=== PATIENT | male | born 1965 ===

== ENCOUNTER 2017-01-10 12:35 | Emergency (ER) | payer MEDICAID ==
[2017-01-10 12:40] VITALS: BMI 22.1
[2017-01-10 12:44] VITALS: BP 148/86; PULSE 90; TEMP 97.7; O2SAT 100
[2017-01-10 13:58] VITALS: RESP 16
--- NOTE | 2017-01-12 08:41 | CARD ---
APPROVED REPORT EKG Measurement Heart [id number] <Conclusion> Sinus tachycardia Otherwise normal ECG
== END 2017-01-10 13:30 | disposition left against medical advice (07) ==
LOC: C.ER 12:35
DX: R07.9 Chest pain, unspecified (principal); Z02.9 Encounter for administrative examinations, unspecified
CPT/HCPCS: 93005; LWBS0

== ENCOUNTER 2017-01-21 20:35 | Emergency (ER) | payer MEDICAID ==
[2017-01-21 20:36] VITALS: BMI 22.1
[2017-01-21 20:53] VITALS: BP 154/100; PULSE 100; RESP 18; TEMP 97.3; O2SAT 98
[2017-01-21 22:18] LABS: ALCOHOL SERUM < 10 mg/dl (0-10)
[2017-01-21 22:21] LABS: MAGNESIUM 1.7 mg/dL (1.6-2.3)
[2017-01-21] MEDS ORDERED: Iodixanol 320 mg/ml 150 ml Bottle IV ONE (23:05)
--- NOTE | 2017-01-21 23:41 | C.PDOC ---
History Of Present Illness Pt was seen at [place] ED twice today for the same complaint where he had normal labs, EKGs and CXR. He signed out AMA from there both times. Time Seen by Provider: 01/21/17 20:52 Chief Complaint (Nursing): Palpitations History Per: Patient Onset/Duration Of Symptoms: Days (1), Intermittent Episodes Current Symptoms Are (Timing): Still Present Associated Symptoms: Chest Pain Quality Of Symptoms: Rapid Heart Rate Severity: Moderate Additional History Per: Prior Records Past Medical History Reviewed: Historical Data, Nursing Documentation, Vital Signs Vital Signs: Last Vital Signs Temp 97.3 F L 01/21/17 20:41 Pulse 100 H 01/21/17 20:41 Resp 18 01/21/17 20:41 BP 154/100 H 01/21/17 20:41 Pulse Ox 98 01/21/17 23:44 - Medical History PMH: Asthma - [facility] Procedures PERIPHERAL NERVE SUTURE (11/03/97) SKIN SUTURE NEC (11/03/97) SUTUR FLEX TEND HAND NEC (11/03/97) Family History: States: Unknown Family Hx - Social History Hx Tobacco Use: No (unknown) Hx Alcohol Use: Yes (DENIED ON 01/21/2018) Hx Substance Use: Yes (IVDA HEROIN) - Immunization History Hx Tetanus Toxoid Vaccination: No Hx Influenza Vaccination: No Hx Pneumococcal Vaccination: No Review Of Systems Except As Marked, All Systems Reviewed And Found Negative. Constitutional: Negative for: Fever, Weakness Cardiovascular: Positive for: Chest Pain, Palpitations Respiratory: Negative for: Hemoptysis Gastrointestinal: Negative for: Vomiting, Abdominal Pain Musculoskeletal: Negative for: Neck Pain, Back Pain, Leg Pain Neurological: Negative for: Weakness, Numbness, Seizures Physical Exam - Physical Exam Appears: Non-toxic, No Acute Distress Skin: Normal Color, Warm, Dry Head: Atraumatic, Normacephalic Eye(s): bilateral: Normal Inspection, PERRL, EOMI Neck: Normal ROM, Supple Cardiovascular: Rhythm Regular Respiratory: Normal Breath Sounds, No Accessory Muscle Use Gastrointestinal/Abdominal: Soft, No Tenderness Back: No CVA Tenderness Extremity: Normal ROM, No Pedal Edema, No Calf Tenderness Neurological/Psych: Oriented x3, Normal Motor, Normal Sensation ED Course And Treatment ECG: Interpreted By Me, Viewed By Me ECG Rhythm: Sinus Rhythm ECG Interpretation: No Acute Changes Rate From EC O2 Sat by Pulse Oximetry: 98 Pulse Ox Interpretation: Normal Progress Note: I ordered a CTA of chest on patient, but the patient did not tolerate the IV line in his arm and wants to leave AMA again right now. We offered to place an IV in the other arm, but pt refused. He insists on leaving AMA even after I explained to him that he may be suffering from a dangerous and life threateting condition such as a blood clot in his lungs. Disposition Counseled Patient/Family Regarding: Studies Performed, Diagnosis, Need For Followup - Disposition Referrals: [facility] at [facility] [Outside] Disposition: AGAINST MEDICAL ADVICE Disposition Time: 23:49 Condition: UNKNOWN Additional Instructions: Follow up with your doctor or in the clinic as soon as possible. Return to the ER if you change your mind, develop worsening of symptoms or if you have any other concerns. Instructions: Against Medical Advice (ED), Chest Pain (ED) Forms: [facility] (Algerian) - Clinical Impression Clinical Impression: Palpitations, Chest pain, Left against medical advice
== END 2017-01-21 23:54 | disposition left against medical advice (07) ==
LOC: C.ER 20:35
DX: R00.2 Palpitations (principal); R07.9 Chest pain, unspecified
CPT/HCPCS: 80320; 83735; 84484; 99283; Q9967

== ENCOUNTER 2017-01-22 13:13 | Emergency (ER) | payer SELFPAY ==
[2017-01-22 13:13] VITALS: BMI 22.1
[2017-01-22] MEDS ORDERED: Aspirin 325 mg EC Tablets PO STA (14:31)
[2017-01-22] MEDS ORDERED: Aspirin 325 mg EC Tablets PO ONE (14:37)
[2017-01-22 15:26] LABS: BASO # 0.1 K/uL (0.0-0.2); BASO % 0.8 % (0.0-2.0); EOS # 0.3 K/uL (0.0-0.7); EOS % 2.2 % (0.0-4.0); HEMATOCRIT 45.2 % (35.0-51.0); LYMPH # 2.6 K/uL (1.0-4.3); LYMPH % 20.1 % (20.0-40.0); MEAN CORPUSCULAR HEMOGLOBIN 29.3 pg (27.0-31.0); MEAN CORPUSCULAR HGB CONC 34.1 g/dL (33.0-37.0); MEAN PLATELET VOLUME 7.4 fL (7.2-11.7); MONO # 0.7 K/uL (0.0-0.8); MONO % 5.7 % (0.0-10.0); NRBC % 0.1 % (0.0-2.0); RED CELL DISTRIBUTION WIDTH 13.5 % (11.5-14.5)
[2017-01-22 15:39] LABS: MEAN CELL VOLUME 85.8 fL (80.0-94.0); WHITE BLOOD COUNT 12.8 K/uL (4.8-10.8)
--- NOTE | 2017-01-22 15:57 | RAD ---
PROCEDURE: CHEST RADIOGRAPH, 1 VIEW HISTORY: chest pain COMPARISON: None available. FINDINGS: LUNGS: Minor biapical pleural thickening. No acute consolidation. PLEURA: No pneumothorax or pleural fluid seen. CARDIOVASCULAR: Normal. OSSEOUS STRUCTURES: No significant abnormalities. VISUALIZED UPPER ABDOMEN: Normal. OTHER FINDINGS: None. IMPRESSION: No acute consolidation. Geovani Minor biapical pleural thickening
[2017-01-22 16:00] LABS: BILIRUBIN,TOTAL 0.7 mg/dL (0.2-1.3); CALCIUM 9.1 mg/dl (8.6-10.4); GFR AFRICAN-AMERICAN > 60; GLUCOSE,RANDOM 82 mg/dL (75-110); TOTAL PROTEIN 8.5 g/dL (6.3-8.3)
--- NOTE | 2017-01-22 16:06 | C.PDOC ---
History Of Present Illness 51-year-old male, presents to the emergency department with complaints of chest pain. four day duration of non-radiating left sided chest pain. Patient has been seen in hospital multiple times this past week and has signed out AMA each time. Denies shortness of breath, back pain, dizziness, or any other associated symptoms. No other complaints at this time., Time Seen by Provider: 01/22/17 14:18 Chief Complaint (Nursing): Chest Pain History Per: Patient History/Exam Limitations: no limitations Onset/Duration Of Symptoms: Days Current Symptoms Are (Timing): Still Present Severity: Moderate Past Medical History Reviewed: Historical Data, Nursing Documentation, Vital Signs Vital Signs: Last Vital Signs Temp 98.1 F 01/22/17 19:18 Pulse 110 H 01/22/17 19:18 Resp 99 H 01/22/17 19:18 BP 156/73 H 01/22/17 19:18 Pulse Ox 99 01/22/17 19:18 - Medical History PMH: Asthma - [facility] Procedures PERIPHERAL NERVE SUTURE (11/03/97) SKIN SUTURE NEC (11/03/97) SUTUR FLEX TEND HAND NEC (11/03/97) Family History: States: No Known Family Hx - Social History Hx Tobacco Use: No (unknown) Hx Alcohol Use: Yes Hx Substance Use: Yes (heroin - shoots) - Immunization History Hx Tetanus Toxoid Vaccination: No Hx Influenza Vaccination: No Hx Pneumococcal Vaccination: No Review Of Systems Except As Marked, All Systems Reviewed And Found Negative. Constitutional: Negative for: Fever, Chills Cardiovascular: Positive for: Chest Pain. Negative for: Palpitations Respiratory: Negative for: Shortness of Breath Gastrointestinal: Negative for: Nausea, Vomiting Musculoskeletal: Negative for: Back Pain Physical Exam - Physical Exam Appears: Non-toxic, No Acute Distress Skin: Warm, Dry, No Rash Head: Atraumatic, Normacephalic Eye(s): bilateral: Normal Inspection, PERRL, EOMI Nose: Normal Oral Mucosa: Moist Lips: Normal Appearing Throat: No Erythema, No Exudate Neck: Normal ROM, No Midline Cervical Tenderness, No Paracervical Tenderness, Supple Chest: Symmetrical, No Tenderness Cardiovascular: Rhythm Regular, No Friction Rub, No Murmur Respiratory: Normal Breath Sounds, No Accessory Muscle Use, No Rales, No Rhonchi , No Wheezing Gastrointestinal/Abdominal: Soft, No Tenderness Back: Normal Inspection, No CVA Tenderness Extremity: Normal ROM, No Swelling Neurological/Psych: Oriented x3, Normal Speech, Normal Motor Gait: Steady ED Course And Treatment - Laboratory Results Result Diagrams: 01/22/17 14:31 01/22/17 15:15 O2 Sat by Pulse Oximetry: 100 (on RA) Pulse Ox Interpretation: Normal - CT Scan/US CT - Angio Chest Other Rad Studies (CT/US): Read By Radiologist, Radiology Report Reviewed CT/US Interpretation: EXAM: CT Angiography Chest With Intravenous Contrast. EXAM DATE/TIME: Exam ordered 01/22/2017 2:45 PM. CLINICAL HISTORY: 51 years old, male; Pain; Chest pain; Type not specified. TECHNIQUE: Axial computed tomographic angiography images of the chest with intravenous contrast using. pulmonary embolism protocol. All CT scans at this facility use one or more dose reduction. techniques, viz.: automated exposure control; ma/kV adjustment per patient size (including targeted. exams where dose is matched to indication; i.e. head); or iterative reconstruction technique. Coronal and sagittal reformatted images were created and reviewed. CONTRAST: 100 mL of [id number] administered intravenously. COMPARISON: No relevant prior studies available. FINDINGS: Pulmonary arteries: Mild motion artifact with no definite pulmonary embolism. Aorta: No thoracic aortic aneurysm. Lungs: Mild emphysematous changes in both lungs. No mass. Pleural space: Unremarkable. No significant effusion. No pneumothorax. Heart: Unremarkable. No cardiomegaly. No significant pericardial effusion. No evidence of RV. dysfunction. Mediastinum : Small hiatal hernia. Bones/joints: Hypertrophic change in the spine is mild. Old left rib fracture. No dislocation. Soft tissues: Unremarkable. Liver: Multiple low density structures are noted in the liver consistent with cysts. In addition there. are multiple low density structures in the kidneys as well as several hyperdense left structure renal. structures. Correlate for polycystic kidney and liver disease. IMPRESSION: 1. Mild motion artifact with no definite pulmonary embolism. 2. Multiple low density structures are noted in the liver consistent with cysts. In addition there are. multiple low density structures in the kidneys as well as several hyperdense left structure renal. structures. Correlate for polycystic kidney and liver disease. Lymph nodes: Unremarkable. No enlarged lymph nodes. Medical Decision Making Medical Decision Making: [facility] records reviewed, the patient was seen in the ED for similar visits of chest pain and has eloped over the past week. PLan: * CT Chest * EKG * Chest X-Ray * Labs * Aspirin * Reassess and Disposition CT results were discussed with the patient. On re-exam, the patient reports improvement of symptoms. Lungs are CTA, heart is RRR, abdomen is soft, non-tender, and patient is tolerating PO well.. Ambulatory in the ED with steady gait. Follow up with the medical doctor within 1-2 days. Return if worsened. Disposition - Disposition Referrals: [facility] at [facility] [Outside] Teresa Holliday MD [Staff Provider] - Disposition: HOME/ ROUTINE Disposition Time: 19:00 Condition: STABLE Additional Instructions: Follow up with the medical doctor within 1-2 days. Return if worsened. Prescriptions: Ibuprofen [Motrin Tab] 800 mg PO TID #20 tab Instructions: Costochondritis (ED), Kidney Cyst (ED) Forms: [employer] (Djiboutian) - Clinical Impression Clinical Impression: Chest pain, Polycystic kidney disease - Scribe Statement The provider has reviewed the documentation as recorded by the Scribe (Monisha Su) All medical record entries made by the Scribe were at my direction and personally dictated by me. I have reviewed the chart and agree that the record accurately reflects my personal performance of the history, physical exam, medical decision making, and the department course for this patient. I have also personally directed, reviewed, and agree with the discharge instructions and disposition.
[2017-01-22 16:12] LABS: ALB/GLOB RATIO 0.9 (1.0-2.1); ALKALINE PHOSPHATASE 110 U/L (38-126); ALT/SGPT 21 U/L (21-72); AST/SGOT 57 U/L (17-59); BLOOD UREA NITROGEN 14 mg/dL (9-20); CARBON DIOXIDE 25 mmol/L (22-30); CHLORIDE 102 mmol/L (98-107); POTASSIUM 4.1 mmol/L (3.6-5.2); SODIUM 134 mmol/L (132-148)
[2017-01-22 16:18] LABS: INR 1.1
[2017-01-22] MEDS ORDERED: Iodixanol 320 MG/ML 100 ML BOTTLE IV ONE (17:02)
--- NOTE | 2017-01-22 18:56 | CT ---
PROCEDURE: CTA chest dated 01/22/2017. HISTORY: Chest pain. COMPARISON: None available. TECHNIQUE: Axial computed tomography images were obtained of the chest in the pulmonary arterial phase of enhancement. Coronal and sagittal reformatted images were created and reviewed. Intravenous contrast dose: 100 cc Visipaque 320 contrast Radiation dose: Total exam DLP = 407.76 mGy-cm. This CT exam was performed using one or more of the following dose reduction techniques: Automated exposure control, adjustment of the mA and/or kV according to patient size, and/or use of iterative reconstruction technique. FINDINGS: PULMONARY ARTERIES: The visualized portions of the pulmonary trunk, right and left main, lobar, segmental and proximal subsegmental branches of the pulmonary arteries are well opacified with no filling defects seen to suggest acute central pulmonary embolus. The main pulmonary trunk measures approximately 2.67 cm. AORTA: No acute findings. No thoracic aortic aneurysm. Ascending thoracic aorta measures approximately 3.3 cm and descending thoracic aorta measures approximately 2.77 cm. LUNGS: No focal consolidation. Questionable tiny paraseptal emphysematous changes of right lung apex. Close. . Mild biapical pleural thickening PLEURAL SPACES: Unremarkable. No effusion or pneumothorax. . HEART: Heart size within range of normal. No significant pericardial effusion. . LYMPH NODES: No lymphadenopathy. BONES, CHEST WALL: Unremarkable. No fracture or destructive lesion OTHER FINDINGS: Multiple (too numerous to count) varying sized of relatively small rounded low-attenuation foci scattered throughout the hepatic parenchyma some of the largest of which likely represent cysts with the other smaller lesions are too small to characterize. Note that the possibility of other infiltrative lesions cannot be completely excluded based on this exam. Additionally, there are multiple varying sized rounded low-attenuation lesions, scattered throughout the right kidney on felt to represent renal cysts. The largest lesion which is exophytic arising from the anterolateral aspect 5.2 cm. . Multiple varying sized lesions scattered throughout the left kidney which exhibit low and high attenuation Hounsfield unit values. These low-attenuation lesions likely represent cysts. The low high attenuation lesions may represent hyperdense cysts however any solid components cannot be completely excluded on. . . History history of hypertension in this patient? And if so, consider polycystic kidney disease. . Follow-up of pre and post-contrast MRI of the kidneys and liver could be performed to exclude any solid tumor IMPRESSION: No evidence of central pulmonary embolus. . Minor passive atelectasis both posterior lower lung gatica. There are multiple low-attenuation foci scattered throughout the hepatic parenchyma too numerous to count. . Most of the larger lesions are likely represent hepatic cysts however some of the smaller lesions are too small to characterize. Possibility of any solid lesion not excluded. There are also cystic changes throughout the right kidney . Multiple cystic and high attenuation lesions scattered throughout the left kidney. High attenuation lesions may represent hyperdense cysts however any solid mass not excluded. . Rule out polycystic kidney disease. Consider followup pre and post-contrast MRI of the liver and kidneys to exclude any solid tumor. Note that the findings were discussed with emergency room LAUREN Adames at approximately 6:51 p.m. with written down and read back verification.
[2017-01-22 19:19] VITALS: BP 156/73; PULSE 110; RESP 99; TEMP 98.1
--- NOTE | 2017-01-23 17:46 | CARD ---
APPROVED REPORT EKG Measurement Heart [id number] [place] 172P60 [id number] <Conclusion> Normal sinus rhythm Possible Left atrial enlargement Septal infarct, age undetermined Abnormal ECG
[2017-01-24 23:11] VITALS: O2SAT 100
== END 2017-01-22 19:19 | disposition home or self-care (01) ==
LOC: C.ER 13:13
DX: R07.9 Chest pain, unspecified (principal); Q61.3 Polycystic kidney, unspecified
CPT/HCPCS: 71010; 71275; 80053; 84484; 85025; 85378; 85610; 85730; 93005; 99284; Q9967

== ENCOUNTER 2017-01-30 19:44 | Emergency (ER) | payer SELFPAY ==
[2017-01-30 19:44] VITALS: BMI 22.1
[2017-01-30] MEDS ORDERED: Aspirin 325 mg EC Tablets PO STA (20:07)
--- NOTE | 2017-01-30 20:07 | C.PDOC ---
History Of Present Illness Patient presents to the ER with a complaint of chest pain and palpitations, admits to heroin use today. Patient has had many several hospitalizations in the past where he signs out AMA and has negative work ups. Patient reports he has reproducible left chest wall discomfort where he states he had a muscle tear years ago. Denies fever, chills, nausea, or vomiting. Time Seen by Provider: 01/30/17 20:06 Chief Complaint (Nursing): Chest Pain History Per: Patient History/Exam Limitations: no limitations Onset/Duration Of Symptoms: Hrs Current Symptoms Are (Timing): Still Present Severity: Mild Pain Scale Rating Of: 4 Associated Symptoms: denies: Nausea, Dyspnea, Diaphoresis, Syncope Modifying Factors: None Exacerbating Factors: None Alleviating Factors: None Recent travel outside of the [place]: No Past Medical History Reviewed: Historical Data, Nursing Documentation, Vital Signs Vital Signs: Last Vital Signs Temp 98.5 F 01/30/17 20:47 Pulse 76 01/30/17 20:47 Resp 15 01/30/17 20:47 BP 139/79 01/30/17 20:47 Pulse Ox 98 01/30/17 21:01 - Medical History PMH: Asthma - [facility] Procedures PERIPHERAL NERVE SUTURE (11/03/97) SKIN SUTURE NEC (11/03/97) SUTUR FLEX TEND HAND NEC (11/03/97) Family History: States: No Known Family Hx - Social History Hx Tobacco Use: No (unknown) Hx Alcohol Use: Yes Hx Substance Use: Yes (heroin - shoots) - Immunization History Hx Tetanus Toxoid Vaccination: No Hx Influenza Vaccination: No Hx Pneumococcal Vaccination: No Review Of Systems Constitutional: Negative for: Fever, Chills Cardiovascular: Positive for: Chest Pain, Palpitations Gastrointestinal: Negative for: Nausea, Vomiting Genitourinary: Negative for: Dysuria Musculoskeletal: Positive for: Other (Reproducible chest wall pain) Skin: Negative for: Rash Neurological: Negative for: Weakness Psych: Negative for: Anxiety Physical Exam - Physical Exam Appears: Non-toxic, No Acute Distress Skin: Warm, Dry Head: Normacephalic Eye(s): bilateral: Normal Inspection Oral Mucosa: Moist Neck: Supple Chest: Symmetrical, Tenderness (Reproducible to left chest wall at mid clavicular line intercostal space 4) Cardiovascular: Rhythm Regular Respiratory: No Rales, No Rhonchi, No Wheezing Gastrointestinal/Abdominal: Soft, No Tenderness Back: Normal Inspection Extremity: Normal ROM Extremity: Bilateral: Atraumatic Pulses: Left Dorsalis Pedis: Normal, Right Dorsalis Pedis: Normal Neurological/Psych: Oriented x3, Normal Speech, Normal Cognition Gait: Steady ED Course And Treatment - Laboratory Results Result Diagrams: 01/30/17 20:17 12 20:17 ECG: Interpreted By Me, Viewed By Me ECG Rhythm: Sinus Rhythm, Nonspecific Changes O2 Sat by Pulse Oximetry: 98 Pulse Ox Interpretation: Normal Progress Note: EKG, blood work, CXR, and urinalysis ordered. Aspirin administered. Reevaluation Time: 22:16 Reassessment Condition: Improved Medical Decision Making Medical Decision Making: I considered the following diagnoses: acute coronary syndrome, pulmonary embolism, lower respiratory infection, aortic dissection/aneurysm, pneumothorax , pericarditis, esophagitis/GERD, zoster and esophageal rupture but found them to be unlikely based on the history, physical exam, and diagnostics. My conclusions regarding the unlikely diagnoses were based on: the absence of significant EKG abnormalities, the lack of suggestive x-ray findings, the absence of significant abnormalities on cardiac monitoring, the absence of asymmetric pulses. Pt feels fine and wants to go home Upon provider reevaluation patient is feeling better, is medically stable, and requires no further treatment in the ED at this time. Patient will be discharged home with Rx for naproxen . Counseling was provided and all questions were answered regarding diagnosis and need for follow up with the referred clinic. There is agreement to discharge plan. Return if symptoms persist or worsen. Disposition Counseled Patient/Family Regarding: Studies Performed, Diagnosis, Need For Followup, Rx Given - Disposition Referrals: [facility] [Outside] [facility] [Outside] Disposition: HOME/ ROUTINE Disposition Time: 20:07 Condition: FAIR Additional Instructions: Please return if symptoms recur Prescriptions: Naproxen [Naprosyn] 1 tab PO BID PRN #25 tab PRN Reason: Pain Instructions: Costochondritis (ED), Chest Pain (DC) Forms: [facility] (Turkish) - Clinical Impression Clinical Impression: Costochondral chest pain, Atypical chest pain, Heroin abuse - Scribe Statement The provider has reviewed the documentation as recorded by the Scribe Shayne Jones All medical record entries made by the Scribe were at my direction and personally dictated by me. I have reviewed the chart and agree that the record accurately reflects my personal performance of the history, physical exam, medical decision making, and the department course for this patient. I have also personally directed, reviewed, and agree with the discharge instructions and disposition.
[2017-01-30 20:27] LABS: BASO # 0.2 K/uL (0.0-0.2); BASO % 1.4 % (0.0-2.0); EOS % 7.3 % (0.0-4.0); HEMATOCRIT 40.5 % (35.0-51.0); LYMPH % 30.1 % (20.0-40.0); MEAN CELL VOLUME 85.8 fL (80.0-94.0); MEAN CORPUSCULAR HEMOGLOBIN 28.6 pg (27.0-31.0); MEAN CORPUSCULAR HGB CONC 33.3 g/dL (33.0-37.0); MEAN PLATELET VOLUME 7.3 fL (7.2-11.7); MONO # 0.8 K/uL (0.0-0.8); MONO % 5.8 % (0.0-10.0); RED CELL DISTRIBUTION WIDTH 13.9 % (11.5-14.5); WHITE BLOOD COUNT 13.2 K/uL (4.8-10.8)
[2017-01-30 20:37] LABS: ALB/GLOB RATIO 0.9 (1.0-2.1); ALKALINE PHOSPHATASE 93 U/L (38-126); ALT/SGPT 35 U/L (21-72); AST/SGOT 28 U/L (17-59); BILIRUBIN,TOTAL 0.5 mg/dL (0.2-1.3); BLOOD UREA NITROGEN 12 mg/dL (9-20); CALCIUM 8.3 mg/dl (8.6-10.4); CARBON DIOXIDE 33 mmol/L (22-30); CHLORIDE 100 mmol/L (98-107); GFR AFRICAN-AMERICAN > 60; GLUCOSE,RANDOM 120 mg/dL (75-110); POTASSIUM 3.6 mmol/L (3.6-5.2); SODIUM 138 mmol/L (132-148); TOTAL PROTEIN 8.2 g/dL (6.3-8.3)
[2017-01-30 20:38] LABS: RBC URINE 12 /hpf (0-3); URINE BACTERIA RARE (<OCC); URINE BILIRUBIN NEGATIVE (NEGATIVE); URINE BLOOD 1+ (NEGATIVE); URINE COLOR Yellow (YELLOW); URINE GLUCOSE (UA) NORMAL (Normal); URINE KETONE NEGATIVE (NEGATIVE); URINE LEUKOCYTE ESTERASE NEG Leu/uL (Negative); URINE PROTEIN NEGATIVE (NEGATIVE); URINE UROBILINOGEN NORMAL mg/dL (0.2-1.0); WBC URINE < 1 /hpf (0-5)
[2017-01-30 22:31] VITALS: BP 139/86; PULSE 64; RESP 18; TEMP 98; O2SAT 99
--- NOTE | 2017-01-31 06:30 | RAD ---
PROCEDURE: CHEST RADIOGRAPH, 1 VIEW HISTORY: chest pain COMPARISON: 01/22/2017 FINDINGS: LUNGS: Biapical pleural thickening with upper lobe granulomatous changes. Hyperinflation suggestive for COPD and or emphysematous changes. PLEURA: No pneumothorax or pleural fluid seen. CARDIOVASCULAR: Normal. OSSEOUS STRUCTURES: No significant abnormalities. VISUALIZED UPPER ABDOMEN: Normal. OTHER FINDINGS: None. IMPRESSION: Biapical pleural thickening with upper lobe granulomatous changes. Hyperinflation suggestive for COPD and or emphysematous changes.
--- NOTE | 2017-01-31 21:45 | CARD ---
APPROVED REPORT EKG Measurement Heart [id number] [place] 174P60 [id number] <Conclusion> Normal sinus rhythm Septal infarct, age undetermined Abnormal ECG
== END 2017-01-30 22:32 | disposition home or self-care (01) ==
LOC: C.ER 19:44
DX: F11.10 Opioid abuse, uncomplicated (principal); R07.89 Other chest pain
CPT/HCPCS: 71010; 80053; 81001; 83880; 84484; 85025; 85610; 85730; 93005; 99285; G0480

== ENCOUNTER → 2017-02-02 16:24 | Emergency (ER) | payer SELFPAY ==
[2017-02-02 16:24] VITALS: BMI 22.1
[2017-02-02 16:30] VITALS: BP 157/87; PULSE 85; RESP 20; TEMP 97.9; O2SAT 97
--- NOTE | 2017-02-04 22:46 | CARD ---
APPROVED REPORT EKG Measurement Heart [id number] [place] 178P66 [id number] <Conclusion> Normal sinus rhythm Normal ECG
== END | disposition left against medical advice (07) ==
LOC: C.ER 16:24
DX: R00.0 Tachycardia, unspecified (principal); Z02.9 Encounter for administrative examinations, unspecified
CPT/HCPCS: 93005; LWBS0

== ENCOUNTER 2017-02-09 21:47 | Emergency (ER) | payer SELFPAY ==
[2017-02-09 21:47] VITALS: BMI 22.1
[2017-02-09 21:54] VITALS: RESP 14; TEMP 97.8; O2SAT 100
--- NOTE | 2017-02-09 22:19 | C.PDOC ---
History Of Present Illness 51 year old male presents to the ER with a complaint of a sharp left sided chest pain that began [employer]. Patient has been seen and evaluated multiple times in the past for similar complaints with only a diagnosis of a "lung cyst". Patient reports he went to see a "lung doctor" today, he gave her all his medical records and she sent out blood tests and scheduled him for a follow up; however, the patient states the pain worsened which prompted visit. Patient notes he has a collapsed muscle on his left chest. Denies SOB, nausea, or vomiting. Time Seen by Provider: 02/09/17 22:09 Chief Complaint (Nursing): Chest Pain History Per: Patient History/Exam Limitations: no limitations Onset/Duration Of Symptoms: Hrs, Sudden Onset Current Symptoms Are (Timing): Still Present Quality: Sharp Associated Symptoms: denies: Nausea, Dyspnea, Diaphoresis, Syncope Modifying Factors: None Exacerbating Factors: None Alleviating Factors: None Recent travel outside of the [place]: No Past Medical History Reviewed: Historical Data, Nursing Documentation, Vital Signs Vital Signs: Last Vital Signs Temp 97.8 F 02/09/17 21:51 Pulse 78 02/09/17 22:31 Resp 14 02/09/17 21:51 BP 166/98 H 02/09/17 22:31 Pulse Ox 100 02/09/17 22:35 - Medical History PMH: Asthma - [facility] Procedures PERIPHERAL NERVE SUTURE (11/03/97) SKIN SUTURE NEC (11/03/97) SUTUR FLEX TEND HAND NEC (11/03/97) Family History: States: Unknown Family Hx - Social History Hx Tobacco Use: No (unknown) Hx Alcohol Use: Yes Hx Substance Use: Yes (heroin - shoots) - Immunization History Hx Tetanus Toxoid Vaccination: No Hx Influenza Vaccination: No Hx Pneumococcal Vaccination: No Review Of Systems Constitutional: Negative for: Fever, Chills Cardiovascular: Positive for: Chest Pain Respiratory: Negative for: Shortness of Breath Gastrointestinal: Negative for: Nausea, Vomiting, Abdominal Pain Musculoskeletal: Negative for: Arm Pain Physical Exam - Physical Exam Appears: Non-toxic, No Acute Distress Skin: Normal Color, Warm, Dry Head: Atraumatic, Normacephalic Eye(s): bilateral: Normal Inspection Oral Mucosa: Moist Neck: Normal, Supple Chest: No Tenderness, Other (prominent musculature of the left pectoralis) Cardiovascular: Rhythm Regular Respiratory: Normal Breath Sounds, No Rales, No Rhonchi, No Wheezing Gastrointestinal/Abdominal: Soft, No Tenderness Neurological/Psych: Oriented x3, Normal Speech ED Course And Treatment O2 Sat by Pulse Oximetry: 100 (Room air) Pulse Ox Interpretation: Normal Medical Decision Making Medical Decision Making: Plan: * EKG * Toradol Disposition - Disposition Disposition: HOME/ ROUTINE Disposition Time: 22:45 Condition: STABLE Forms: [facility] (French) - Clinical Impression Clinical Impression: Chest wall pain - Scribe Statement The provider has reviewed the documentation as recorded by the Scribe Shayne Jones All medical record entries made by the Scribe were at my direction and personally dictated by me. I have reviewed the chart and agree that the record accurately reflects my personal performance of the history, physical exam, medical decision making, and the department course for this patient. I have also personally directed, reviewed, and agree with the discharge instructions and disposition.
[2017-02-09 22:35] VITALS: BP 166/98; PULSE 78
--- NOTE | 2017-02-12 09:37 | CARD ---
APPROVED REPORT EKG Measurement Heart [id number] 170P62 [id number] <Conclusion> Normal sinus rhythm Septal infarct, age undetermined Abnormal ECG
== END 2017-02-09 22:42 | disposition home or self-care (01) ==
LOC: C.ER 21:47
DX: R07.89 Other chest pain (principal)
CPT/HCPCS: 93005; 96372; 99284; J1885

== ENCOUNTER 2017-02-18 18:48 | Emergency (ER) | payer SELFPAY ==
[2017-02-18 18:48] VITALS: BMI 22.1
--- NOTE | 2017-02-21 12:11 | CARD ---
APPROVED REPORT EKG Measurement Heart [id number] [place] 178P65 [id number] <Conclusion> Normal sinus rhythm Normal ECG
== END 2017-02-18 18:53 | disposition left against medical advice (07) ==
LOC: C.ER 18:48
DX: Z02.89 Encounter for other administrative examinations (principal); R07.9 Chest pain, unspecified

== ENCOUNTER 2017-03-23 22:01 | Emergency (ER) | payer SELFPAY ==
[2017-03-23 22:01] VITALS: BMI 22.1
[2017-03-23 22:16] VITALS: RESP 18
[2017-03-23] MEDS ORDERED: Sodium Chloride 0.9% 1,000 ML IV ONE (23:17)
[2017-03-23] MEDS ORDERED: Morphine 4 MG/ML VIAL ONE (23:34)
[2017-03-23] MEDS ORDERED: Sodium Chloride 0.9% 1,000 ML ONE (23:34)
--- NOTE | 2017-03-23 23:44 | C.PDOC ---
History Of Present Illness 51 year male with a Hx of an umbilical hernia presents to the ER stating it began to get hard and painful approximately 2 hours ago and vomited x4. Denies chest pain or SOB. Time Seen by Provider: 03/23/17 23:04 Chief Complaint (Nursing): Abdominal Pain History Per: Patient History/Exam Limitations: no limitations Onset/Duration Of Symptoms: Hrs Current Symptoms Are (Timing): Still Present Location Of Pain/Discomfort: Other (Umbilicus) Radiation Of Pain To:: None Quality Of Discomfort: Unable To Describe Associated Symptoms: Vomiting. denies: Chest Pain, Other (SOB) Exacerbating Factors: None Alleviating Factors: None Recent travel outside of the [place]: No Past Medical History Reviewed: Historical Data, Nursing Documentation, Vital Signs Vital Signs: Last Vital Signs Temp 97.6 F 03/23/17 23:50 Pulse 74 03/23/17 23:50 Resp 18 03/23/17 23:50 BP 137/75 03/23/17 23:50 Pulse Ox 99 03/24/17 00:20 - Medical History PMH: Asthma - [facility] Procedures PERIPHERAL NERVE SUTURE (11/03/97) SKIN SUTURE NEC (11/03/97) SUTUR FLEX TEND HAND NEC (11/03/97) Family History: States: Unknown Family Hx - Social History Hx Tobacco Use: No (unknown) Hx Alcohol Use: No Hx Substance Use: Yes (heroin iv) - Immunization History Hx Tetanus Toxoid Vaccination: No Hx Influenza Vaccination: No Hx Pneumococcal Vaccination: No Review Of Systems Except As Marked, All Systems Reviewed And Found Negative. Constitutional: Negative for: Fever, Chills Cardiovascular: Negative for: Chest Pain Respiratory: Negative for: Shortness of Breath Gastrointestinal: Positive for: Vomiting, Abdominal Pain Physical Exam - Physical Exam Appears: Non-toxic Skin: Normal Color, Warm, Dry Head: Atraumatic, Normacephalic Eye(s): bilateral: Normal Inspection Oral Mucosa: Moist Chest: Symmetrical, No Tenderness Cardiovascular: Rhythm Regular Respiratory: Normal Breath Sounds, No Rales, No Rhonchi, No Wheezing Gastrointestinal/Abdominal: Soft, No Tenderness, Hernia (Tender, hard, umbilical ) Neurological/Psych: Oriented x3, Normal Speech, Other (No focal deficits) ED Course And Treatment - Laboratory Results Result Diagrams: 03/23/17 23:40 03/23/17 23:40 O2 Sat by Pulse Oximetry: 99 (Room air) Pulse Ox Interpretation: Normal Medical Decision Making Medical Decision Making: Plan: * Blood work * Morphine * IV fluids * Zofran 12:27AM Ice was applied to umbilical hernia. It was then reduced with complete resolution of pain. Will dc patient home with surgery follow-up. Disposition - Disposition Referrals: Non [facility] Provider, [Primary Care Provider] - Luis Tenorio MD [Staff Provider] - Disposition: HOME/ ROUTINE Disposition Time: 00:28 Condition: GOOD Additional Instructions: You need to follow-up with general surgery for surgical mgmt of your hernia within 2 days. You need to return immediately with any worsening symptoms or if you hernia gets hard or painful again. Instructions: Umbilical Hernia (ED) Forms: [employer] (Thai) - Clinical Impression Clinical Impression: Umbilical hernia - Scribe Statement The provider has reviewed the documentation as recorded by the Scribe Shayne Jones All medical record entries made by the Scribe were at my direction and personally dictated by me. I have reviewed the chart and agree that the record accurately reflects my personal performance of the history, physical exam, medical decision making, and the department course for this patient. I have also personally directed, reviewed, and agree with the discharge instructions and disposition.
[2017-03-23 23:47] LABS: BASO # 0.1 K/uL (0.0-0.2); BASO % 0.7 % (0.0-2.0); EOS # 0.6 K/uL (0.0-0.7); EOS % 3.3 % (0.0-4.0); HEMOGLOBIN 14.7 g/dL (12.0-18.0); LYMPH # 2.2 K/uL (1.0-4.3); LYMPH % 13.3 % (20.0-40.0); MEAN CELL VOLUME 86.2 fL (80.0-94.0); MEAN CORPUSCULAR HEMOGLOBIN 29.9 pg (27.0-31.0); MEAN CORPUSCULAR HGB CONC 34.7 g/dL (33.0-37.0); MEAN PLATELET VOLUME 7.9 fL (7.2-11.7); MONO # 0.8 K/uL (0.0-0.8); NEUT # 13.2 K/uL (1.8-7.0); NEUT % 77.7 % (50.0-75.0); RBC 4.9 Mil/uL (4.40-5.90); RED CELL DISTRIBUTION WIDTH 13.5 % (11.5-14.5); WHITE BLOOD COUNT 16.9 K/uL (4.8-10.8)
[2017-03-23 23:55] LABS: ALB/GLOB RATIO 1.2 (1.0-2.1); ALBUMIN 4.1 g/dL (3.5-5.0); ALT/SGPT 18 U/L (21-72); AST/SGOT 24 U/L (17-59); BLOOD UREA NITROGEN 13 mg/dL (9-20); CALCIUM 9.5 mg/dl (8.6-10.4); GFR AFRICAN-AMERICAN > 60; GFR NON-AFRICAN AMERICAN > 60; LIPASE 84 U/L (23-300)
[2017-03-23 23:56] VITALS: TEMP 97.6
[2017-03-24 00:35] VITALS: BP 138/84; PULSE 64; O2SAT 100
== END 2017-03-24 00:40 | disposition home or self-care (01) ==
LOC: SUPCPDRO 22:01 → C.ER 22:01
DX: K42.9 Umbilical hernia without obstruction or gangrene (principal)
CPT/HCPCS: 80053; 83690; 85025; 96361; 96374; 96375; 99284; J2270; J2405; J7040

== ENCOUNTER 2017-06-19 07:39 | Emergency (ER) | payer SELFPAY ==
[2017-06-19 07:39] VITALS: BMI 22.1
[2017-06-19 07:56] VITALS: RESP 18
--- NOTE | 2017-06-19 08:20 | C.PDOC ---
History Of Present Illness 51-year-old male, presents to the emergency department with complaints of two week Hx of left chest pain, associated with shortness of breath and nausea, described as sharp, and squeezing pain. Patient denies vomiting, fevers, diarrhea, chills, dizziness, arm pain, neck pain, back pain or any other associated symptoms. No other complaints at this time. Time Seen by Provider: 06/19/17 07:55 Chief Complaint (Nursing): Chest Pain History Per: Patient History/Exam Limitations: no limitations Past Medical History Reviewed: Historical Data, Nursing Documentation, Vital Signs Vital Signs: Last Vital Signs Temp 97.1 F L 06/19/17 11:23 Pulse 72 06/19/17 11:23 Resp 18 06/19/17 11:23 BP 139/80 06/19/17 11:23 Pulse Ox 98 06/19/17 11:23 - Medical History PMH: Asthma - [facility] Procedures PERIPHERAL NERVE SUTURE (11/03/97) SKIN SUTURE NEC (11/03/97) SUTUR FLEX TEND HAND NEC (11/03/97) Family History: States: No Known Family Hx - Social History Hx Tobacco Use: No (unknown) Hx Alcohol Use: Yes Hx Substance Use: Yes (heroin iv) - Immunization History Hx Tetanus Toxoid Vaccination: No Hx Influenza Vaccination: No Hx Pneumococcal Vaccination: No Review Of Systems Constitutional: Negative for: Fever Cardiovascular: Positive for: Chest Pain. Negative for: Palpitations Respiratory: Positive for: Shortness of Breath Gastrointestinal: Positive for: Nausea. Negative for: Vomiting Musculoskeletal: Negative for: Back Pain Skin: Negative for: Rash Neurological: Negative for: Weakness, Numbness, Headache, Dizziness Physical Exam - Physical Exam Appears: Non-toxic, No Acute Distress Skin: Normal Color, Warm, Dry, No Rash Head: Normacephalic Eye(s): bilateral: Normal Inspection, PERRL, EOMI Nose: Normal Oral Mucosa: Moist Lips: Normal Appearing Neck: Normal ROM Cardiovascular: Rhythm Regular, No Murmur Respiratory: Normal Breath Sounds, No Accessory Muscle Use Gastrointestinal/Abdominal: Soft, No Tenderness Back: Normal Inspection Extremity: Normal ROM, No Deformity, No Swelling Neurological/Psych: Oriented x3, Normal Speech ED Course And Treatment - Laboratory Results Result Diagrams: 06/19/17 08:42 06/19/17 08:42 Rate From EC O2 Sat by Pulse Oximetry: 97 (RA) Pulse Ox Interpretation: Normal Medical Decision Making Medical Decision Making: Plan: * EKG * CMP, CK, UDS, Trop I * CBC * Chest X-Ray * Reassess and Disposition Leaving Against Medical Advice (AMA): This patient is choosing to leave against medical advice. I have personally explained to the pt that choosing to do so may result in permanent bodily harm or . I have discussed at great length that without further evaluation and monitoring there may be unforeseen circumstances and/or deterioration causing permanent bodily harm or as a result of their choice. The pt verbalized these risks back to the physician in laymans terms. The pt is alert, oriented, and shows the mental capacity to make clear decisions regarding the pts health care at this time. The pt continues to wish to leave against medical advice. In light of the pts decision to leave AMA, follow-up has been arranged and the pt is aware of the importance of following up as instructed. The pt has been advised that they should return to the ED immediately if they change their mind at any time, or if their condition begins to change or worsen in any way. Disposition Counseled Patient/Family Regarding: Studies Performed, Diagnosis, Need For Followup - Disposition Referrals: Marcial Lewis MD [Staff Provider] - Disposition: AGAINST MEDICAL ADVICE Disposition Time: 11:09 Condition: STABLE Additional Instructions: follow up with cardiology immediately return to ER at any time you are signing out against medical advice and assume responsibility of your care you understand symptoms may worsen and lead to possible worst outcome including you do not hold my staff or I responsible for all potential negative outcome Instructions: Chest Pain, Leaving Against Medical Advice Forms: [employer] (Arabic) - Clinical Impression Clinical Impression: Chest discomfort - Scribe Statement The provider has reviewed the documentation as recorded by the Scribe (Monisha Su) All medical record entries made by the Scribe were at my direction and personally dictated by me. I have reviewed the chart and agree that the record accurately reflects my personal performance of the history, physical exam, medical decision making, and the department course for this patient. I have also personally directed, reviewed, and agree with the discharge instructions and disposition.
[2017-06-19 08:49] LABS: BASO # 0.1 K/uL (0.0-0.2); BASO % 1.1 % (0.0-2.0); EOS # 0.4 K/uL (0.0-0.7); EOS % 3.5 % (0.0-4.0); HEMOGLOBIN 13.2 g/dL (12.0-18.0); LYMPH # 2.5 K/uL (1.0-4.3); LYMPH % 19.7 % (20.0-40.0); MEAN CELL VOLUME 88.1 fL (80.0-94.0); MEAN CORPUSCULAR HEMOGLOBIN 29.7 pg (27.0-31.0); MEAN CORPUSCULAR HGB CONC 33.7 g/dL (33.0-37.0); MEAN PLATELET VOLUME 7.6 fL (7.2-11.7); MONO # 0.9 K/uL (0.0-0.8); MONO % 6.9 % (0.0-10.0); NEUT # 8.9 K/uL (1.8-7.0); NEUT % 68.8 % (50.0-75.0); NRBC % 0.1 % (0.0-2.0); RBC 4.44 Mil/uL (4.40-5.90); WHITE BLOOD COUNT 12.9 K/uL (4.8-10.8)
[2017-06-19 09:08] LABS: ALBUMIN 3.7 g/dL (3.5-5.0); ALT/SGPT 12 U/L (21-72); AST/SGOT 36 U/L (17-59); BLOOD UREA NITROGEN 17 mg/dL (9-20); CALCIUM 8.6 mg/dl (8.6-10.4); GFR AFRICAN-AMERICAN > 60; GFR NON-AFRICAN AMERICAN > 60
--- NOTE | 2017-06-19 09:28 | RAD ---
Chest x-ray single frontal view History: Chest pain. Comparison: 01/30/2017 Findings: Mild venous congestion. Biapical pleural thickening with upper lobe granulomatous changes. Patchy increased markings at the lung bases. Question mild nodularity at the lung bases. Heart size within normal limits. Impression: Mild venous congestion. Biapical pleural thickening with upper lobe granulomatous changes. Patchy increased markings at the lung bases. Question mild nodularity at the lung bases.
[2017-06-19 10:53] LABS: BARBITURATES, UR NEGATIVE (NEGATIVE); BENZODIAZEPINES, UR NEGATIVE (NEGATIVE); PHENCYCLIDINE, UR NEGATIVE (NEGATIVE)
[2017-06-19 10:57] LABS: OPIATES, UR POSITIVE (NEGATIVE)
[2017-06-19 11:24] VITALS: BP 139/80; PULSE 72; TEMP 97.1
[2017-06-19 11:49] VITALS: O2SAT 97
--- NOTE | 2017-06-20 21:58 | CARD ---
APPROVED REPORT EKG Measurement Heart [id number] [id number] <Conclusion> Normal sinus rhythm with sinus arrhythmia Normal ECG
== END 2017-06-19 11:24 | disposition left against medical advice (07) ==
LOC: C.ER 07:39
DX: R07.89 Other chest pain (principal)
CPT/HCPCS: 36415; 71045; 80053; 82550; 84484; 85025; 93005; 99285; G0480

== ENCOUNTER 2017-06-20 15:01 | Emergency (ER) | payer OTHER ==
[2017-06-20 17:07] VITALS: BMI 25.0
--- NOTE | 2017-06-21 23:54 | CARD ---
APPROVED REPORT EKG Measurement Heart [id number] [id number] <Conclusion> Normal sinus rhythm Normal ECG
== END 2017-06-20 15:22 | disposition left against medical advice (07) ==
LOC: C.ER 15:01
DX: Z02.89 Encounter for other administrative examinations (principal); R07.9 Chest pain, unspecified
CPT/HCPCS: 93005; LWBS0

== ENCOUNTER 2017-06-22 12:42 | Emergency (ER) | payer OTHER ==
[2017-06-22 12:42] VITALS: BMI 25.0
[2017-06-22 12:47] VITALS: BP 148/80; PULSE 104; RESP 20; TEMP 97.9; O2SAT 96
== END 2017-06-22 13:34 | disposition left against medical advice (07) ==
LOC: C.ER 12:42
DX: Z02.89 Encounter for other administrative examinations (principal); F19.10 Other psychoactive substance abuse, uncomplicated

== ENCOUNTER 2017-06-24 16:25 | Inpatient (IN) | payer SELFPAY ==
[2017-06-24 16:38] VITALS: BMI 23.4
[2017-06-24 16:56] LABS: BASO % 0.2 % (0.0-2.0); EOS # 0.5 K/uL (0.0-0.7); HEMOGLOBIN 13.3 g/dL (12.0-18.0); LYMPH # 4.5 K/uL (1.0-4.3); LYMPH % 39.9 % (20.0-40.0); MEAN CELL VOLUME 87.5 fL (80.0-94.0); MEAN CORPUSCULAR HEMOGLOBIN 30.1 pg (27.0-31.0); MEAN CORPUSCULAR HGB CONC 34.4 g/dL (33.0-37.0); MEAN PLATELET VOLUME 6.9 fL (7.2-11.7); MONO # 0.9 K/uL (0.0-0.8); MONO % 7.8 % (0.0-10.0); NEUT # 5.4 K/uL (1.8-7.0); NEUT % 48.1 % (50.0-75.0); NRBC % 0.1 % (0.0-2.0); RBC 4.42 Mil/uL (4.40-5.90); RED CELL DISTRIBUTION WIDTH 15.1 % (11.5-14.5); WHITE BLOOD COUNT 11.3 K/uL (4.8-10.8)
[2017-06-24 17:09] LABS: ALB/GLOB RATIO 1.1 (1.0-2.1); AST/SGOT 35 U/L (17-59); BLOOD UREA NITROGEN 14 mg/dL (9-20); CALCIUM 8.8 mg/dl (8.6-10.4); GFR AFRICAN-AMERICAN > 60; GFR NON-AFRICAN AMERICAN > 60
[2017-06-24 17:14] LABS: BARBITURATES, UR NEGATIVE (NEGATIVE); BENZODIAZEPINES, UR NEGATIVE (NEGATIVE); PHENCYCLIDINE, UR NEGATIVE (NEGATIVE); SQUAMOUS EPITHIAL < 1 /hpf (0-5); URINE BILIRUBIN NEGATIVE (NEGATIVE); URINE BLOOD 1+ (NEGATIVE); URINE CLARITY Clear (Clear); URINE COLOR Yellow (YELLOW); URINE GLUCOSE (UA) NORMAL (Normal); URINE LEUKOCYTE ESTERASE NEG Leu/uL (Negative); URINE PROTEIN NEGATIVE (NEGATIVE); URINE UROBILINOGEN NORMAL mg/dL (0.2-1.0)
[2017-06-24 17:25] LABS: ALT/SGPT 9 U/L (21-72); OPIATES, UR POSITIVE (NEGATIVE)
--- NOTE | 2017-06-24 17:47 | C.PDOC ---
History Of Present Illness 51 y/o male presents to the ER requesting detox from ETOH. Patient states that he is prescreened. Patient denies having suicidal ideation, homicidal ideation, and active physical complaints. Time Seen by Provider: 06/24/17 16:28 Chief Complaint (Nursing): Substance Abuse History Per: Patient History/Exam Limitations: no limitations Past Medical History Reviewed: Historical Data, Nursing Documentation, Vital Signs Vital Signs: Last Vital Signs Temp 99 F 06/24/17 16:39 Pulse 82 06/24/17 16:39 Resp 20 06/24/17 16:39 BP 138/88 06/24/17 16:39 Pulse Ox 97 06/24/17 17:48 - Medical History PMH: Asthma Denies: Chronic Kidney Disease Surgical History: No Surg Hx - [facility] Procedures PERIPHERAL NERVE SUTURE (11/03/97) SKIN SUTURE NEC (11/03/97) SUTUR FLEX TEND HAND NEC (11/03/97) Family History: States: No Known Family Hx - Social History Hx Tobacco Use: No (unknown) Hx Alcohol Use: Yes Hx Substance Use: Yes - Immunization History Hx Tetanus Toxoid Vaccination: No Hx Influenza Vaccination: No Hx Pneumococcal Vaccination: No Review Of Systems Except As Marked, All Systems Reviewed And Found Negative. Constitutional: Negative for: Fever, Chills Psych: Negative for: Suicidal ideation Physical Exam - Physical Exam Appears: No Acute Distress Skin: Normal Color, Warm Head: Atraumatic, Normacephalic Eye(s): bilateral: Normal Inspection Nose: Normal Oral Mucosa: Moist Neck: Supple Chest: Symmetrical Cardiovascular: Rhythm Regular Respiratory: Normal Breath Sounds, No Rales, No Rhonchi, No Wheezing Gastrointestinal/Abdominal: Normal Exam, Soft, No Tenderness Extremity: Normal ROM Extremity: Left: [place] Tenderness Neurological/Psych: Oriented x3, Normal Speech ED Course And Treatment - Laboratory Results Result Diagrams: 06/24/17 16:52 06/24/17 16:52 O2 Sat by Pulse Oximetry: 97 Progress Note: Labs, UA, and Crisis evaluation ordered. Patient has been medically cleared and accepted for detox by . Disposition - Disposition Disposition: HOSPITALIZED Disposition Time: 18:20 Condition: STABLE Forms: [employer] (Palestinian) - Clinical Impression Clinical Impression: Alcohol dependence, Opiate dependence - PA / COST REPORT CLERK / Resident Statement MD/DO has reviewed & agrees with the documentation as recorded. - Scribe Statement The provider has reviewed the documentation as recorded by the Scribe Felciia Pham Provider Attestation All medical record entries made by the Mindyibe were at my direction and personally dictated by me. I have reviewed the chart and agree that the record accurately reflects my personal performance of the history, physical exam, medical decision making, and the department course for this patient. I have also personally directed, reviewed, and agree with the discharge instructions and disposition.
--- NOTE | 2017-06-24 18:34 | PCM.BM ---
Treatment Plan Problems - Problems identified on initial assessmt potiential for opiate withdrawal Date Initiated: 06/24/17 Time Initiated: 18:33 Assessment reference: NA Status: Active potiential for autonomic instability related to alcohol withdrawal Date Initiated: 06/24/17 Time Initiated: 18:33 Assessment reference: NA Status: Active Treatment assets and liabiliti Patient Assests: ADL independent, physically healthy, cognitively intact Patient Liabilities: substance abuse, medical problems - Milieu Protocol Maintain good personal hygiene: daily Encourage regular showers, daily Remind patient to perform daily oral care, daily Assist patient to perform ADL's Maintain personal safety: every shift Educate patient to report safety concerns to staff, every shift Monitor environment for contraband/sharps Medication safety: Monitor for expected outcome, potential side effects: every shift, Assess barriers to learning: every shift, Assess readiness for medication education: every shift
[2017-06-25] MEDS ORDERED: Multiple Vitamins Tab PO SCH (10:00)
[2017-06-25 14:18] VITALS: RESP 18
[2017-06-25 15:35] VITALS: BP 157/103; PULSE 92; TEMP 97.3; O2SAT 98
== END 2017-06-25 16:30 | disposition left against medical advice (07) | DRG 894 ==
LOC: C.ER 16:25 → C.7D 18:19
PROVIDERS: ADMIT Psychiatry & Neurology Psychiatry; ATTEND Psychiatry & Neurology Psychiatry
DX: F10.20 Alcohol dependence, uncomplicated (principal); F11.20 Opioid dependence, uncomplicated; J45.909 Unspecified asthma, uncomplicated

== ENCOUNTER 2017-08-23 00:56 | Inpatient (IN) | payer MEDICAID ==
[2017-08-23 00:56] VITALS: BMI 23.4
--- NOTE | 2017-08-23 01:09 | C.PDOC ---
History Of Present Illness Patient presents to the ER requesting detox from ETOH and drugs. Denies physical complaints at this time. Time Seen by Provider: 08/23/17 01:09 Chief Complaint (Nursing): Substance Abuse History Per: Patient History/Exam Limitations: no limitations Onset/Duration Of Symptoms: Hrs Current Symptoms Are (Timing): Still Present Suicide/Self Injury Attempted (Context): None Modifying Factor(s): None Severity: None Pain Scale Rating Of: 0 Associated Symptoms: denies: Depression, Suicidal Thoughts Involuntary Hold By: None Recent travel outside of the [place]: No Past Medical History Reviewed: Historical Data, Nursing Documentation, Vital Signs Vital Signs: Last Vital Signs Temp 98.1 F 08/23/17 04:01 Pulse 102 H 08/23/17 04:01 Resp 18 08/23/17 04:01 BP 107/64 08/23/17 04:01 Pulse Ox 96 08/23/17 04:03 - Medical History PMH: Asthma Surgical History: No Surg Hx - [facility] Procedures PERIPHERAL NERVE SUTURE (11/03/97) SKIN SUTURE NEC (11/03/97) SUTUR FLEX TEND HAND NEC (11/03/97) Family History: States: No Known Family Hx - Social History Hx Tobacco Use: No (unknown) Hx Alcohol Use: Yes Hx Substance Use: No - Immunization History Hx Tetanus Toxoid Vaccination: No Hx Influenza Vaccination: No Hx Pneumococcal Vaccination: No Review Of Systems Constitutional: Negative for: Fever, Chills Cardiovascular: Negative for: Chest Pain Respiratory: Negative for: Cough, Shortness of Breath Gastrointestinal: Negative for: Nausea, Vomiting Physical Exam - Physical Exam Appears: Non-toxic Skin: Warm, Dry Head: Normacephalic Oral Mucosa: Moist Chest: Symmetrical, No Tenderness Cardiovascular: Rhythm Regular Respiratory: No Rales, No Rhonchi, No Wheezing Gastrointestinal/Abdominal: Soft, No Tenderness Neurological/Psych: Oriented x3 ED Course And Treatment - Laboratory Results Result Diagrams: 08/23/17 01:38 08/23/17 01:38 O2 Sat by Pulse Oximetry: 96 (Room air) Pulse Ox Interpretation: Normal Progress Note: Blood work and urinalysis ordered. Crisis notified. Disposition Discussed With : Leny Crawley Comment: accepted the pt [facility] is service and took over the care at 5:33 AM Doctor Will See Patient In The: Hospital Counseled Patient/Family Regarding: Studies Performed, Diagnosis - Disposition Disposition: HOSPITALIZED Disposition Time: 01:09 Condition: FAIR Forms: [facility] (Spanish) - POA Present On Arrival: Poor Glycemic Control - Clinical Impression Clinical Impression: Alcohol intoxication, Narcotic abuse, Drug dependence - Scribe Statement The provider has reviewed the documentation as recorded by the Scribe Shayne Jones All medical record entries made by the Scribe were at my direction and personally dictated by me. I have reviewed the chart and agree that the record accurately reflects my personal performance of the history, physical exam, medical decision making, and the department course for this patient. I have also personally directed, reviewed, and agree with the discharge instructions and disposition. Decision To Admit - Pt Status Changed To: Hospital Disposition Of: Inpatient - Admit Certification Admit to Inpatient:: After my assessment, the patient will require hospitalization for at least two midnights. This is because of the severity of symptoms shown, intensity of services needed, and/or the medical risk in this patient being treated as an outpatient. - InPatient: Physician Admission Certification: I certify that this patient requires 2 or more midnights of care for the following reason:: After my assessment, the patient will require hospitalization for at least two midnights. This is because of the severity of symptoms shown, intensity of services needed, and/or the medical risk in this patient being treated as an outpatient. - . Bed Request Type: Detox Admitting Physician: Leny Crawley Patient Diagnosis: Alcohol intoxication, Narcotic abuse, Drug dependence
[2017-08-23 01:43] LABS: BASO # 0.1 K/uL (0.0-0.2); BASO % 1.2 % (0.0-2.0); EOS # 0.1 K/uL (0.0-0.7); EOS % 0.9 % (0.0-4.0); HEMOGLOBIN 14.7 g/dL (12.0-18.0); LYMPH # 2.1 K/uL (1.0-4.3); LYMPH % 25.1 % (20.0-40.0); MEAN CELL VOLUME 89.7 fL (80.0-94.0); MEAN CORPUSCULAR HEMOGLOBIN 30.7 pg (27.0-31.0); MEAN CORPUSCULAR HGB CONC 34.2 g/dL (33.0-37.0); MEAN PLATELET VOLUME 7.5 fL (7.2-11.7); MONO # 1.1 K/uL (0.0-0.8); MONO % 12.6 % (0.0-10.0); NEUT # 5.1 K/uL (1.8-7.0); NEUT % 60.2 % (50.0-75.0); NRBC % 0.1 % (0.0-2.0); RBC 4.8 Mil/uL (4.40-5.90); RED CELL DISTRIBUTION WIDTH 15.1 % (11.5-14.5); WHITE BLOOD COUNT 8.5 K/uL (4.8-10.8)
[2017-08-23 02:02] LABS: ALB/GLOB RATIO 1.2 (1.0-2.1); ALBUMIN 4.4 g/dL (3.5-5.0); ALT/SGPT 72 U/L (21-72); AST/SGOT 174 U/L (17-59); BLOOD UREA NITROGEN 16 mg/dL (9-20); CALCIUM 8.7 mg/dl (8.6-10.4); GFR AFRICAN-AMERICAN > 60; GFR NON-AFRICAN AMERICAN > 60; URINE BACTERIA RARE (<OCC); URINE BILIRUBIN NEGATIVE (NEGATIVE); URINE CLARITY Clear (Clear); URINE COLOR Yellow (YELLOW); URINE GLUCOSE (UA) NORMAL (Normal); URINE LEUKOCYTE ESTERASE NEG Leu/uL (Negative); URINE PROTEIN 1+ mg/dL (NEGATIVE); URINE UROBILINOGEN NORMAL mg/dL (0.2-1.0)
[2017-08-23 02:11] LABS: URINE BLOOD 1+ (NEGATIVE)
[2017-08-23 02:21] LABS: BARBITURATES, UR NEGATIVE (NEGATIVE); BENZODIAZEPINES, UR NEGATIVE (NEGATIVE); PHENCYCLIDINE, UR NEGATIVE (NEGATIVE)
[2017-08-23 02:26] LABS: OPIATES, UR POSITIVE (NEGATIVE)
[2017-08-23] MEDS ORDERED: Potassium Chloride 10 mEq ER Tab PO STA (02:28)
[2017-08-23] MEDS ORDERED: Potassium Chloride 10 mEq ER Tab PO ONE (02:34)
--- NOTE | 2017-08-23 06:01 | PCM.BM ---
<Maynor Mccabe - Last Filed: 08/23/17 05:59> Treatment Plan Problems - Problems identified on initial assessmt potential for alcohol withdrawal Date Initiated: 08/23/17 Time Initiated: 06:00 Status: Active Treatment assets and liabiliti Patient Assests: ADL independent, physically healthy, cognitively intact Patient Liabilities: relationship conflicts, substance abuse - Milieu Protocol Maintain good personal hygiene: daily Encourage regular showers, daily Remind patient to perform daily oral care, daily Assist patient to perform ADL's, every shift Encourage regular showers, every shift Remind patient to perform daily oral care, every shift Assist patient to perform ADL's Conduct patient checks and document Observation sheet: Q15 minutes Maintain personal safety: every shift Educate patient to report safety concerns to staff, every shift Monitor environment for contraband/sharps Medication safety: Monitor for expected outcome, potential side effects: every shift, Assess barriers to learning: every shift, Assess readiness for medication education: every shift <Agnes Vieyra - Last Filed: 08/23/17 10:11> - Diagnosis (1) Alcohol dependence Status: Acute Interventions: 08/23/17 10:11 * Assess 7x/week regarding severity of withdrawal * Educate regarding risks, benefits, side effects and alternatives of medications * Use Motivational Interviewing for abstinence * Use CBT for relapse prevention * Medication management for withdrawal symptoms * Encourage medication assisted treatment * (2) Opiate dependence Status: Acute Interventions: 08/23/17 10:11 * Assess 7x/week regarding severity of withdrawal * Educate regarding risks, benefits, side effects and alternatives of medications * Use Motivational Interviewing for abstinence * Use CBT for relapse prevention * Medication management for withdrawal symptoms * Encourage medication assisted treatment *
[2017-08-23] MEDS ORDERED: Aluminum Hydroxide/Magnesium Hydroxide Susp (30 mL) PO PRN (06:40)
[2017-08-23] MEDS ORDERED: guaiFENesin DM 200 mg-20 mg/10 ml UD PO PRN (06:40)
[2017-08-23] MEDS ORDERED: Benzocaine/Menthol (Cepacol) Lozenge PO PRN (06:40)
[2017-08-23] MEDS ORDERED: Bacitracin 500 Units/gm Oint Foilpak UD TOP SCH (10:00)
[2017-08-23] MEDS ORDERED: Multiple Vitamins Tab PO SCH (10:00)
[2017-08-23] MEDS ORDERED: Magnesium Hydroxide Susp 30 ml UD PO SCH (10:00)
--- NOTE | 2017-08-23 10:10 | PCM.PSYCH ---
Initial Psychiatric Evaluation - Initial Psychiatric Evaluation Type of Admission: Voluntary Legal Status: Capacity Chief Complaint (in patient's own words): "I'm withdrawing" History of Present Illness and Precipitating Events: The patient is seen, chart reviewed and case discussed. This is a 51-year-old male, single, has 3 children aged 16, 23 and 34. 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 He is here for opioid detox and alcohol detox. He reports he has been drinking almost 3 pints a day and using iv heroin "every 2 hours," close to 20-30 bags a day. He also smokes 1 pack of cigarettes a day, but he denies other drug use. He has never been to rehabilitation but he was in detox 3 times. He was in our detox but AMA to the same day in May, and he was at [facility] about a month ago. He started using drugs "many years ago" He has a history of DTs and significant withdrawals. Past psych history: Denies Medical history: Denies Family psych history: Denies Current Medications: Active Medications Generic Name Dose Route Start Last Admin Trade Name Freq PRN Reason Stop Dose Admin Al Hydrox/Mg Hydrox/Simethicone 30 ml 08/23/17 06:40 Maalox 30 Ml PO TID PRN Indigestion / Heartburn Bacitracin 1 ea 08/23/17 10:00 08/23/17 09:39 Bacitracin TOP 08/26/17 10:01 Not Given DAILY WILLIS Benzocaine/Menthol 1 brendon 08/23/17 06:40 Cepacol Sore Throat PO QID PRN Sore Throat Clonidine HCl 0.1 mg 08/23/17 06:40 Catapres PO Q8 PRN COWS Score More or Equal to 5 Dicyclomine HCl 10 mg 08/23/17 09:06 08/23/17 09:23 Bentyl PO 10 mg Q6 PRN Administration Muscle spasm Docusate Sodium 100 mg 08/23/17 10:00 08/23/17 09:39 Colace PO Not Given DAILY WILLIS Folic Acid 1 mg 08/23/17 10:00 08/23/17 09:39 Folic Acid PO Not Given DAILY WILLIS Guaifenesin/Dextromethorphan 10 ml 08/23/17 06:40 Robitussin Dm PO Q4H PRN Cough and congestion Ibuprofen 600 mg 08/23/17 06:43 Motrin Tab PO TID PRN Pain, moderate (4-7) Loperamide HCl 2 mg 08/23/17 06:40 Imodium PO Q8 PRN Diarrhea Lorazepam 1 mg 08/23/17 07:35 Ativan PO Q4H PRN Symptoms of alcohol withdrawl Lorazepam 2 mg 08/23/17 10:00 Ativan PO 08/28/17 09:59 Q6H WILLIS Taper Magnesium Hydroxide 30 ml 08/23/17 10:00 08/23/17 09:41 Milk Of Magnesia PO 08/25/17 10:01 Not Given BID WILLIS Multivitamins 1 tab 08/23/17 10:00 08/23/17 09:40 Hexavitamin PO Not Given DAILY [facility] Nicotine 1 patch 08/23/17 10:00 08/23/17 09:40 Nicoderm Cq TD Not Given DAILY WILLIS Ondansetron HCl 4 mg 08/23/17 06:40 Zofran Tab PO Q8 PRN Nausea/Vomiting Pseudoephedrine HCl 60 mg 08/23/17 06:40 Sudafed Tab PO QID PRN Nasal/Sinus Congestion Thiamine HCl 100 mg 08/23/17 10:00 08/23/17 09:40 Vitamin B1 Tab PO Not Given DAILY WILLIS Trazodone HCl 50 mg 08/23/17 07:35 Desyrel PO HS PRN Insomnia Past Psychiatric History - Past Psychiatric History Previous Treatment History: None Pertinent Medical Hx (Current Medical&Sleep Prob, Allergies): Allergies Allergy/AdvReac Type Severity Reaction Status Date / Time Penicillins Allergy SHORTNESS Verified 08/23/17 01:10 OF BREATH No Known Home Med 02/02/17 Review of Systems - Psychiatric Psychiatric: Abnormal Sleep Pattern, Anxiety, Depression, Difficulty Concentrating, Irritability. absent: Hallucinations, Homicidal Ideation, Paranoia, Suicidal Ideation Mental Status Examination - Personal Presentation Personal Presentation: Looks older than stated age (tattooed) - Affect Affect: Constricted - Motor Activity Motor Activity: Other (restless) - Reliability in Providing Information Reliability in Providing Information: Fair - Speech Speech: Organized - Mood Mood: Depressed, Anxious - Formal Thought Process Formal Thought Process: No Impairment - Cognitive Functions Orientation: Person, Place, Time Sensorium: Alert Attention/Concentration: Easily distracted Estimate of Intelligence: Average Judgement: Intact, as evidence by: Insight regarding need for hospitalization Memory: Recent intact, as evidence by: Ability to recall events of the day, Remote intact, as evidenced by: Abilit to recall sig. life events - Risk Risk: Withdrawal, Diminished functioning - Strength & Assets Inventory Strength & Assets Inventory: Employment history, Cooperative - Limitations Limitations: Other DSM 5 DX - DSM 5 DSM 5 Diagnosis: Alcohol withdrawal Opioid withdrawal Opioid use d/o- severe Alcohol use d/o- severe Personality d/o- unspecified Depressive d/o- unspecified - Recommended/Plan of Treatment Treatment Recommendations and Plan of Treatment: Taper with methadone and ativan Gabapentin for augmentation if needed As needed medications All risks, benefits and alternatives of the meds discussed, and the pt agreed and understood. Attend groups and activities Supportive therapy and psychoeducation NM for abstinence CBT for relapse prevention Encourage MAT Refer to rehab or IOP, and self-help groups Smoking cessation with NM Nicotine patch if needed 34 min Projected ELOS: 5-6 days Prognosis: good w rehab and MAT - Smoking Cessation Smoking Cessation Initiated: Yes
[2017-08-23 13:35] VITALS: BP 132/72; PULSE 78; RESP 18; TEMP 98.1; O2SAT 95
[2017-08-23] MEDS ORDERED: Pantoprazole 20 mg EC Tab PO SCH (14:15)
--- NOTE | 2017-08-23 23:17 | PCM.PYCHDC ---
Mental Status Examination - Mental Status Examination Orientation: Person Discharge Summary - Discharge Note Laboratory Data: Abnormal Lab Results 08/23/17 08/23/17 08/23/17 01:38 01:38 01:38 WBC 8.5 RBC 4.80 Hgb 14.7 Hct 43.0 MCV 89.7 D MCH 30.7 MCHC 34.2 RDW 15.1 H Plt Count 435 H MPV 7.5 Neut % (Auto) 60.2 Lymph % (Auto) 25.1 [place] % (Auto) 12.6 H Eos % (Auto) 0.9 Baso % (Auto) 1.2 Neut # (Auto) 5.1 Lymph # (Auto) 2.1 [place] # (Auto) 1.1 H Eos # (Auto) 0.1 Baso # (Auto) 0.1 Sodium 148 Potassium 3.1 L Chloride 104 Carbon Dioxide 24 Anion Gap 23 H BUN 16 Creatinine 1.0 Est GFR ( Amer) > 60 Est GFR (Non-Af Amer) > 60 Random Glucose 140 H Calcium 8.7 Total Bilirubin 0.8 AST 174 H D ALT 72 D Alkaline Phosphatase 163 H D Total Protein 7.9 Albumin 4.4 Globulin 3.5 Albumin/Globulin Ratio 1.2 Urine Color Yellow Urine Clarity Clear Urine pH 6.0 Ur Specific [place] 1.009 Urine Protein 1+ H Urine Glucose (UA) Normal Urine Ketones Negative Urine Blood 1+ H Urine Nitrate Negative Urine Bilirubin Negative Urine Urobilinogen Normal Ur Leukocyte Esterase Neg Urine WBC (Auto) 2 Urine RBC (Auto) 5 H Urine Bacteria Rare Urine Opiates Screen Urine Methadone Screen Ur Barbiturates Screen Ur Phencyclidine Scrn Ur Amphetamines Screen U Benzodiazepines Scrn U Oth Cocaine Metabols U Cannabinoids Screen Alcohol, Quantitative 393 H 08/23/17 01:38 WBC RBC Hgb Hct MCV MCH MCHC RDW Plt Count MPV Neut % (Auto) Lymph % (Auto) [place] % (Auto) Eos % (Auto) Baso % (Auto) Neut # (Auto) Lymph # (Auto) [place] # (Auto) Eos # (Auto) Baso # (Auto) Sodium Potassium Chloride Carbon Dioxide Anion Gap BUN Creatinine Est GFR ( Amer) Est GFR (Non-Af Amer) Random Glucose Calcium Total Bilirubin AST ALT Alkaline Phosphatase Total Protein Albumin Globulin Albumin/Globulin Ratio Urine Color Urine Clarity Urine pH Ur Specific [place] Urine Protein Urine Glucose (UA) Urine Ketones Urine Blood Urine Nitrate Urine Bilirubin Urine Urobilinogen Ur Leukocyte Esterase Urine WBC (Auto) Urine RBC (Auto) Urine Bacteria Urine Opiates Screen Positive H Urine Methadone Screen Positive H Ur Barbiturates Screen Negative Ur Phencyclidine Scrn Negative Ur Amphetamines Screen Negative U Benzodiazepines Scrn Negative U Oth Cocaine Metabols Negative U Cannabinoids Screen Negative Alcohol, Quantitative Consultations:: List each consultation separately and include: 1. Reason for request. 2. Findings. 3. Follow-up Summary of Hospital Course include:: 1. Description of specific treatment plan utilized for patients during their course of treatmen. 2. Summarize the time- course for resolution of acute symptoms and/or regressed behaviors. 3. Describe issues identified and worked on during hospitalization. 4. Describe medication utilized. 5. Describe medical problems identified and treated. 6. Reassessment of suicide risk Summary of Hospital Course: The patient is seen, chart reviewed and case discussed. This is a 51-year-old male, single, has 3 children aged 16, 23 and 34. 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 He is here for opioid detox and alcohol detox. He reports he has been drinking almost 3 pints a day and using iv heroin "every 2 hours," close to 20-30 bags a day. He also smokes 1 pack of cigarettes a day, but he denies other drug use. He has never been to rehabilitation but he was in detox 3 times. He was in our detox but AMA to the same day in May, and he [facility] a month [facility]. He started using drugs "many years ago" He has a history of DTs and significant withdrawals. Past psych history: Denies Medical history: Denies Family psych history: Denies - Diagnosis (1) Alcohol dependence Status: Acute (2) Opiate dependence Status: Acute - Final Diagnosis (DSM 5) Condition upon Discharge: FAIR Disposition: AGAINST MEDICAL ADVICE Follow-up Treatment Plan: Taper with methadone and ativan Gabapentin for augmentation if needed As needed medications All risks, benefits and alternatives of the meds discussed, and the pt agreed and understood. Attend groups and activities Supportive therapy and psychoeducation CO for abstinence CBT for relapse prevention Encourage MAT Refer to rehab or IOP, and self-help groups Smoking cessation with CO Nicotine patch if needed 34 min
== END 2017-08-23 16:52 | disposition left against medical advice (07) | DRG 743 ==
LOC: C.ER 00:56 → C.7D 05:33
PROVIDERS: ADMIT Psychiatry & Neurology Psychiatry; ATTEND Psychiatry & Neurology Psychiatry
PROC: HZ2ZZZZ Detoxification Services for Substance Abuse Treatment (ICD-10-PCS; principal; 2017-08-23)
PROC: HZ59ZZZ Individual Psychotherapy for Substance Abuse Treatment, Supportive (ICD-10-PCS; 2017-08-23)
PROC: HZ46ZZZ Group Counseling for Substance Abuse Treatment, Psychoeducation (ICD-10-PCS; 2017-08-23)
PROC: GZ3ZZZZ Medication Management (ICD-10-PCS; 2017-08-23)
PROC: HZ90ZZZ Pharmacotherapy for Substance Abuse Treatment, Nicotine Replacement (ICD-10-PCS; 2017-08-23)
DX: F11.23 Opioid dependence with withdrawal (principal); F10.239 Alcohol dependence with withdrawal, unspecified; F17.210 Nicotine dependence, cigarettes, uncomplicated; F32.9 Major depressive disorder, single episode, unspecified; J45.909 Unspecified asthma, uncomplicated; F60.9 Personality disorder, unspecified

== ENCOUNTER 2017-09-15 20:23 | Emergency (ER) | payer MEDICAID, OTHER ==
[2017-09-15 20:24] VITALS: BMI 23.4
[2017-09-15 20:45] VITALS: BP 161/100; PULSE 102; RESP 18; TEMP 97.8; O2SAT 98
[2017-09-15] MEDS ORDERED: Multivitamin (MVI) 10 ML, Thiamine 100 MG, Folic Acid 1 MG in Sodium Chloride 0.9% 1,00... IV STA (20:59)
[2017-09-15] MEDS ORDERED: Sodium Chloride 0.9% 1,000 ML ONE (21:22)
[2017-09-15 21:31] LABS: BASO # 0.2 K/uL (0.0-0.2); BASO % 2.3 % (0.0-2.0); EOS # 0.2 K/uL (0.0-0.7); EOS % 2.8 % (0.0-4.0); HEMOGLOBIN 14.2 g/dL (12.0-18.0); LYMPH # 3.8 K/uL (1.0-4.3); LYMPH % 42.7 % (20.0-40.0); MEAN CELL VOLUME 88.4 fL (80.0-94.0); MEAN CORPUSCULAR HEMOGLOBIN 30.7 pg (27.0-31.0); MEAN CORPUSCULAR HGB CONC 34.7 g/dL (33.0-37.0); MEAN PLATELET VOLUME 6.6 fL (7.2-11.7); MONO # 0.4 K/uL (0.0-0.8); MONO % 4.4 % (0.0-10.0); NEUT # 4.2 K/uL (1.8-7.0); NEUT % 47.8 % (50.0-75.0); NRBC % 0.1 % (0.0-2.0); RBC 4.61 Mil/uL (4.40-5.90); RED CELL DISTRIBUTION WIDTH 14.1 % (11.5-14.5); WHITE BLOOD COUNT 8.8 K/uL (4.8-10.8)
[2017-09-15 21:38] LABS: URINE BILIRUBIN NEGATIVE (NEGATIVE); URINE BLOOD 1+ (NEGATIVE); URINE CLARITY Clear (Clear); URINE COLOR Straw (YELLOW); URINE GLUCOSE (UA) NORMAL (Normal); URINE LEUKOCYTE ESTERASE NEG Leu/uL (Negative); URINE PROTEIN NEGATIVE (NEGATIVE); URINE UROBILINOGEN NORMAL mg/dL (0.2-1.0)
[2017-09-15 21:49] LABS: ALB/GLOB RATIO 1.3 (1.0-2.1); ALT/SGPT 37 U/L (21-72); AST/SGOT 49 U/L (17-59); BLOOD UREA NITROGEN 14 mg/dL (9-20); CALCIUM 8.7 mg/dl (8.6-10.4); GFR AFRICAN-AMERICAN > 60; GFR NON-AFRICAN AMERICAN > 60; LIPASE 209 U/L (23-300)
[2017-09-15 21:54] LABS: BARBITURATES, UR NEGATIVE (NEGATIVE); BENZODIAZEPINES, UR NEGATIVE (NEGATIVE); OPIATES, UR NEGATIVE (NEGATIVE); PHENCYCLIDINE, UR NEGATIVE (NEGATIVE)
--- NOTE | 2017-09-15 22:46 | C.PDOC ---
Time Seen by Provider: 09/15/17 20:50 Chief Complaint (Nursing): Substance Abuse History Per: Patient History/Exam Limitations: intoxication Onset/Duration Of Symptoms: Days Current Symptoms Are (Timing): Still Present Suicide/Self Injury Attempted (Context): None Modifying Factor(s): Alcohol, Narcotics Severity: Moderate Associated Symptoms: denies: Suicidal Thoughts, Suicidal Plan Additional History Per: Prior Records Past Medical History Reviewed: Historical Data, Nursing Documentation, Vital Signs Vital Signs: Last Vital Signs Temp 97.8 F 09/15/17 20:35 Pulse 102 H 09/15/17 20:35 Resp 18 09/15/17 20:35 BP 161/100 H 09/15/17 20:35 Pulse Ox 98 09/15/17 22:46 - Medical History PMH: Asthma, HTN - [facility] Procedures DETOXIFICATION SERVICES FOR SUBSTANCE ABUSE TREATMENT (08/23/17) GROUP PREPRESS SUPERVISOR FOR SUBSTANCE ABUSE TREATMENT, PSYCHOEDUCATION (08/23/17) INDIV PSYCHOTHERAPY FOR SUBSTANCE ABUSE TREATMENT, SUPPORT (08/23/17) MEDICATION MANAGEMENT (08/23/17) PERIPHERAL NERVE SUTURE (11/03/97) PHARMACOTHERAPY FOR SUBSTANCE ABUSE, NICOTINE REPLACE (08/23/17) SKIN SUTURE NEC (11/03/97) SUTUR FLEX TEND HAND NEC (11/03/97) Family History: States: Unknown Family Hx - Social History Hx Tobacco Use: Yes Hx Alcohol Use: Yes Hx Substance Use: Yes (heroin) - Immunization History Hx Tetanus Toxoid Vaccination: No Hx Influenza Vaccination: No Hx Pneumococcal Vaccination: No Review Of Systems Review Of Systems: ROS cannot be obtained secondary to pt's inabilty to answer questions. Physical Exam - Physical Exam Appears: No Acute Distress, Other (AOB, intoxicated) Skin: Normal Color, Warm, Dry Head: Atraumatic Eye(s): bilateral: PERRL Neck: Normal ROM, No Midline Cervical Tenderness, No Step Off Deformity, Supple Cardiovascular: Rhythm Regular Respiratory: Normal Breath Sounds, No Accessory Muscle Use Gastrointestinal/Abdominal: Soft, No Tenderness Extremity: Normal ROM, No Deformity Neurological/Psych: Eyes Open With Command, Slow To Respond With Command, Other (Moving all extremities) ED Course And Treatment - Laboratory Results Result Diagrams: 09/15/17 21:27 09/15/17 21:27 O2 Sat by Pulse Oximetry: 98 Pulse Ox Interpretation: Normal Progress Note: Pt is not only AAOX3. He is ambulating around and goes into the bathroom to smoke cigarettes. Pt is being verbaly abusive to staff. He is clinically sober and will be discharged home right now. Reevaluation Time: 23:56 Reassessment Condition: Improved Progress - Interventions Interventions:: Observation, Intravenous fluid - Medications Administered Intravenous: Antiemetic, H-2 emmie - Data Reviewed Data Reviewed: Lab, Old records - Patient Status Patient status: Mostly improved - Continuity of Care Discussed patient case with:: Patient, ED Nurse - Patient Plan Patient Plan: Discharge, F/U with PCP Disposition Counseled Patient/Family Regarding: Studies Performed, Diagnosis, Need For Followup, Smoking Cessation - Disposition Disposition: HOME/ ROUTINE Disposition Time: 23:57 Condition: IMPROVED Additional Instructions: Follow up with your doctor. Return to the ER if you develop worsening of symptoms or if you have any other concerns. Instructions: Alcohol Abuse and Alcoholism (DC) Forms: [facility] ([place] Islander) - Clinical Impression Clinical Impression: Alcohol abuse
== END 2017-09-16 00:10 | disposition home or self-care (01) ==
LOC: C.ER 20:23
DX: F10.129 Alcohol abuse with intoxication, unspecified (principal); Y90.8 Blood alcohol level of 240 mg/100 ml or more; I10 Essential (primary) hypertension
CPT/HCPCS: 80053; 80320; 80324; 80345; 80346; 80349; 80353; 80358; 80361; 81001; 83690; 83735; 83992; 85025; 96374; 96375; 99283; J2405; J3411; J7030

== ENCOUNTER 2017-09-20 09:18 | Emergency (ER) | payer MEDICAID, OTHER ==
--- NOTE | 2017-09-20 09:43 | C.PDOC ---
History Of Present Illness 51 y/o male presents to ED requesting detox from Heroin. Patient reports last used earlier today and denies SI/HI, chest pain, sob or any other complaints at this time. Time Seen by Provider: 09/20/17 09:26 History Per: Patient History/Exam Limitations: no limitations Onset/Duration Of Symptoms: Days Current Symptoms Are (Timing): Still Present Suicide/Self Injury Attempted (Context): None Past Medical History Reviewed: Historical Data, Nursing Documentation, Vital Signs - Medical History PMH: Asthma, HTN Surgical History: No Surg Hx - [facility] Procedures DETOXIFICATION SERVICES FOR SUBSTANCE ABUSE TREATMENT (08/23/17) GROUP COCOA BEAN ROASTER HELPER FOR SUBSTANCE ABUSE TREATMENT, PSYCHOEDUCATION (08/23/17) INDIV PSYCHOTHERAPY FOR SUBSTANCE ABUSE TREATMENT, SUPPORT (08/23/17) MEDICATION MANAGEMENT (08/23/17) PERIPHERAL NERVE SUTURE (11/03/97) PHARMACOTHERAPY FOR SUBSTANCE ABUSE, NICOTINE REPLACE (08/23/17) SKIN SUTURE NEC (11/03/97) SUTUR FLEX TEND HAND NEC (11/03/97) Family History: States: No Known Family Hx - Social History Hx Tobacco Use: Yes Hx Alcohol Use: Yes Hx Substance Use: Yes (heroin) - Immunization History Hx Tetanus Toxoid Vaccination: No Hx Influenza Vaccination: No Hx Pneumococcal Vaccination: No Review Of Systems Constitutional: Negative for: Fever, Chills Cardiovascular: Negative for: Chest Pain Respiratory: Negative for: Shortness of Breath Gastrointestinal: Negative for: Nausea, Vomiting Skin: Negative for: Rash Psych: Positive for: Other (substance abuse) Physical Exam - Physical Exam Appears: Non-toxic, No Acute Distress Skin: Warm, Dry, No Rash Head: Atraumatic, Normacephalic Eye(s): bilateral: Normal Inspection Oral Mucosa: Moist Neck: Normal ROM, Supple Cardiovascular: Rhythm Regular Respiratory: Normal Breath Sounds, No Rales, No Rhonchi, No Wheezing Gastrointestinal/Abdominal: Soft, No Tenderness, No Guarding, No Rebound Extremity: Normal ROM, Capillary Refill (<2 seconds) Neurological/Psych: Oriented x3, Normal Speech, Normal Cognition ED Course And Treatment O2 Sat by Pulse Oximetry: 100 (RA) Pulse Ox Interpretation: Normal Medical Decision Making Medical Decision Making: Assessment: Substance abuse Progress: D/w Crisis , no beds available, patient discharged with outpatient detox list. Disposition Counseled Patient/Family Regarding: Diagnosis, Need For Followup - Disposition Referrals: [facility] [Outside] Disposition: HOME/ ROUTINE Disposition Time: 09:41 Condition: STABLE Additional Instructions: follow up with referred centers for detox today call to make an appointment today return to hospital if symptoms worses or progress Instructions: Drug Abuse and Drug Addiction (DC) - Clinical Impression Clinical Impression: Opiate dependence - Scribe Statement The provider has reviewed the documentation as recorded by the Mindyibkalli Brooks All medical record entries made by the Mario were at my direction and personally dictated by me. I have reviewed the chart and agree that the record accurately reflects my personal performance of the history, physical exam, medical decision making, and the department course for this patient. I have also personally directed, reviewed, and agree with the discharge instructions and disposition.
[2017-09-20 09:47] VITALS: O2SAT 100
[2017-09-20 10:00] VITALS: BMI 23.6
[2017-09-20 10:25] VITALS: BP 175/85; PULSE 88; RESP 20; TEMP 98
== END 2017-09-20 10:00 | disposition home or self-care (01) ==
LOC: C.ER 09:18
DX: F11.20 Opioid dependence, uncomplicated (principal)

== ENCOUNTER 2017-09-25 17:48 | Emergency (ER) | payer OTHER ==
[2017-09-25 17:49] VITALS: BMI 23.6
--- NOTE | 2017-09-25 19:23 | C.PDOC ---
History Of Present Illness Patient presented to the ED after having a questionable witnessed fall and sustaining a laceration to the right eyebrow. Patient states he has been drinking all day today. Denies nausea, vomiting, loss of consciousness. - HPI Time Seen by Provider: 09/25/17 19:22 Chief Complaint (Nursing): Trauma History Per: Patient History/Exam Limitations: no limitations Onset/Duration Of Symptoms: Hrs Injury Occurred (Timing): Just Before Arrival Location Of Injury: Right: Face (right eye) Severity: Moderate Pain Scale Rating Of: 4 Recent travel outside of the [facility]: No - Fall Fall:Prior To Injury: Tripped Past Medical History Vital Signs: Last Vital Signs Temp 97.5 F L 09/25/17 17:59 Pulse 85 09/25/17 21:43 Resp 14 09/25/17 21:43 BP 114/67 09/25/17 21:43 Pulse Ox 97 09/25/17 22:16 - Medical History PMH: Asthma, HTN Denies: HIV, Chronic Kidney Disease, Seizures, Sexually Transmitted Disease Surgical History: No Surg Hx - [facility] Procedures DETOXIFICATION SERVICES FOR SUBSTANCE ABUSE TREATMENT (08/23/17) GROUP ROTARY VENEER MACHINE OPERATOR FOR SUBSTANCE ABUSE TREATMENT, PSYCHOEDUCATION (08/23/17) INDIV PSYCHOTHERAPY FOR SUBSTANCE ABUSE TREATMENT, SUPPORT (08/23/17) MEDICATION MANAGEMENT (08/23/17) PERIPHERAL NERVE SUTURE (11/03/97) PHARMACOTHERAPY FOR SUBSTANCE ABUSE, NICOTINE REPLACE (08/23/17) SKIN SUTURE NEC (11/03/97) SUTUR FLEX TEND HAND NEC (11/03/97) Family History: States: No Known Family Hx - Social History Hx Tobacco Use: Yes Hx Alcohol Use: Yes Hx Substance Use: Yes (heroin) - Immunization History Hx Tetanus Toxoid Vaccination: No Hx Influenza Vaccination: No Hx Pneumococcal Vaccination: No Review Of Systems Constitutional: Negative for: Fever, Weakness Cardiovascular: Negative for: Chest Pain Respiratory: Negative for: Shortness of Breath, Wheezing Gastrointestinal: Negative for: Nausea, Vomiting Neurological: Negative for: Weakness, Numbness Physical Exam - Physical Exam Appears: Non-toxic, Other (ETOH on breath) Skin: Warm, Dry Head: Normacephalic Eye(s): bilateral: PERRL, EOMI, right: Other (2 cm laceration upper eyelid) Ear(s): Bilateral: Normal Nose: Normal Oral Mucosa: Moist Neck: Trachea Midline, Supple Cardiovascular: Rhythm Regular Respiratory: No Rales, No Rhonchi, No Wheezing Gastrointestinal/Abdominal: Soft, No Tenderness, No Distention Neurological/Psych: Oriented x3 Gait: Steady ED Course And Treatment O2 Sat by Pulse Oximetry: 97 (RA) Pulse Ox Interpretation: Normal - CT Scan/US CT head Other Rad Studies (CT/US): Read By Radiologist, Radiology Report Reviewed CT/US Interpretation: EXAM: CT Head Without Intravenous Contrast. EXAM DATE/ TIME: Examination ordered 09/25/2017 7:31 PM. Image number total count reviewed 323. CLINICAL HISTORY: The patient is 51 years old and is male; Injury or trauma; Fall; Initial encounter; Abrasion; Face. Facility exam id and description: Ct_heads head w/o contrast. TECHNIQUE: Axial computed tomography images of the head/brain without intravenous contrast. All CT scans at. this facility use at least one of these dose optimization techniques: automated exposure control; mA. and/or kV adjustment per patient size (includes targeted exams where dose is matched to clinical. indication); or iterative reconstruction. COMPARISON: No relevant prior studies available. FINDINGS: BRAIN: Unremarkable. No hemorrhage. No significant white matter disease. No edema. VENTRICLES: Unremarkable. No ventriculomegaly. BONES/JOINTS: Bilateral medial orbital wall deformities likely from previous injuries. No acute. fracture. SOFT TISSUES: Unremarkable. SINUSES: Unremarkable as visualized. No acute sinusitis. MASTOID AIR CELLS: Unremarkable as visualized. No mastoid effusion. IMPRESSION: No acute findings. Progress Note: CT head and labs ordered. Pt clinically sober. Ambulating without difficulty. Wants to go home Laceration - Laceration Repair r eyelid Wound Length (In cm): 2 Description Of Wound: Linear Wound Cleansed With: Betadine Wound Closure: Skin Glue Wound Complexity: Simple Disposition Counseled Patient/Family Regarding: Studies Performed, Diagnosis, Need For Followup - Disposition Referrals: [facility] [Outside] Disposition: HOME/ ROUTINE Disposition Time: 19:23 Condition: FAIR Instructions: Alcohol Abuse and Alcoholism (DC), Laceration Repair With Glue ( DC) Forms: [employer] (Egyptian) - Clinical Impression Clinical Impression: Alcohol intoxication, Laceration, eyelid, right - Scribe Statement The provider has reviewed the documentation as recorded by the Mario Mar Adalid Provider Attestation: All medical record entries made by the Scribe were at my direction and personally dictated by me. I have reviewed the chart and agree that the record accurately reflects my personal performance of the history, physical exam, medical decision making, and the department course for this patient. I have also personally directed, reviewed, and agree with the discharge instructions and disposition.
[2017-09-25 21:44] VITALS: PULSE 85
[2017-09-25 23:06] VITALS: BP 122/85; RESP 16; TEMP 98.5; O2SAT 96
--- NOTE | 2017-09-26 09:02 | CT ---
Date of service: 09/25/2017 PROCEDURE: CT HEAD WITHOUT CONTRAST. HISTORY: fall COMPARISON: None available. TECHNIQUE: Axial computed tomography images were obtained through the head/brain without intravenous contrast. Radiation dose: Total exam DLP = 968.54 mGy-cm. This CT exam was performed using one or more of the following dose reduction techniques: Automated exposure control, adjustment of the mA and/or kV according to patient size, and/or use of iterative reconstruction technique. FINDINGS: HEMORRHAGE: No intracranial hemorrhage. BRAIN: No mass effect or edema. No atrophy or chronic microvascular ischemic changes. VENTRICLES: Unremarkable. No hydrocephalus. CALVARIUM: Unremarkable. PARANASAL SINUSES: Unremarkable as visualized. No significant inflammatory changes. MASTOID AIR CELLS: Unremarkable as visualized. No inflammatory changes. OTHER FINDINGS: Bilateral old depressed lamina papyracea fractures. No evidence of acute fracture. IMPRESSION: No intracranial mass, hemorrhage or evidence of acute infarct. Bilateral old depressed lamina papyracea fractures. Otherwise unremarkable examination. The preliminary findings for this examination were reported by [facility] at 8:20 p.m. on 09/25/2017. There is concurrence of this report with the preliminary findings.
== END 2017-09-25 23:05 | disposition home or self-care (01) ==
LOC: C.ER 17:48
DX: S01.111A Laceration without foreign body of right eyelid and periocular area, initial encounter (principal); W18.30XA Fall on same level, unspecified, initial encounter; Y92.89 Other specified places as the place of occurrence of the external cause; F10.129 Alcohol abuse with intoxication, unspecified

== ENCOUNTER 2017-09-26 20:59 | Emergency (ER) | payer OTHER ==
[2017-09-26 21:00] VITALS: BMI 23.6
[2017-09-26 21:27] VITALS: O2SAT 98
--- NOTE | 2017-09-26 22:20 | C.PDOC ---
History Of Present Illness 51 year old male presents to the ED requesting alcohol detox. Patient denies SI/ HI, hallucinations, other complaints at this time. Time Seen by Provider: 09/26/17 21:48 Chief Complaint (Nursing): Substance Abuse History Per: Patient History/Exam Limitations: no limitations Onset/Duration Of Symptoms: Hrs Current Symptoms Are (Timing): Still Present Suicide/Self Injury Attempted (Context): None Modifying Factor(s): Alcohol Associated Symptoms: denies: Depression, Suicidal Thoughts, Suicidal Plan Involuntary Hold By: None Recent travel outside of the [place]: No Additional History Per: Patient Past Medical History Reviewed: Historical Data, Nursing Documentation, Vital Signs Vital Signs: Last Vital Signs Temp 98.4 F 09/26/17 22:15 Pulse 104 H 09/26/17 22:15 Resp 20 09/26/17 22:15 BP 159/95 H 09/26/17 22:15 Pulse Ox 98 09/26/17 22:23 - Medical History PMH: Asthma, HTN Denies: HIV, Chronic Kidney Disease, Seizures, Sexually Transmitted Disease Surgical History: No Surg Hx - [facility] Procedures DETOXIFICATION SERVICES FOR SUBSTANCE ABUSE TREATMENT (08/23/17) GROUP ACTIVITIES LEADER FOR SUBSTANCE ABUSE TREATMENT, PSYCHOEDUCATION (08/23/17) INDIV PSYCHOTHERAPY FOR SUBSTANCE ABUSE TREATMENT, SUPPORT (08/23/17) MEDICATION MANAGEMENT (08/23/17) PERIPHERAL NERVE SUTURE (11/03/97) PHARMACOTHERAPY FOR SUBSTANCE ABUSE, NICOTINE REPLACE (08/23/17) SKIN SUTURE NEC (11/03/97) SUTUR FLEX TEND HAND NEC (11/03/97) Family History: States: Unknown Family Hx - Social History Hx Tobacco Use: Yes Hx Alcohol Use: Yes Hx Substance Use: Yes (heroin) - Immunization History Hx Tetanus Toxoid Vaccination: No Hx Influenza Vaccination: No Hx Pneumococcal Vaccination: No Review Of Systems Constitutional: Negative for: Fever, Chills Cardiovascular: Negative for: Chest Pain, Palpitations Respiratory: Negative for: Cough, Shortness of Breath Gastrointestinal: Negative for: Nausea, Vomiting, Abdominal Pain Skin: Negative for: Rash Psych: Positive for: Other (alcohol abuse). Negative for: Depression, Suicidal ideation Physical Exam - Physical Exam Appears: Non-toxic, No Acute Distress Skin: Normal Color, Warm, Dry Head: Atraumatic, Normacephalic Eye(s): bilateral: Normal Inspection Oral Mucosa: Moist Neck: Normal ROM, Supple Chest: Symmetrical Cardiovascular: Rhythm Regular Respiratory: Normal Breath Sounds, No Rales, No Rhonchi, No Wheezing Gastrointestinal/Abdominal: Soft, No Tenderness, No Guarding, No Rebound Extremity: Normal ROM, No Tenderness, No Swelling Neurological/Psych: Oriented x3, Normal Speech Gait: Steady ED Course And Treatment O2 Sat by Pulse Oximetry: 98 (ON RA) Pulse Ox Interpretation: Normal Medical Decision Making Medical Decision Making: Impression: alcohol abuse Plan: * Requested repeat HR and patient will be D/C. * * alcohol abuse - repeat hr 98-104 bpm Disposition Counseled Patient/Family Regarding: Studies Performed, Diagnosis - Disposition Referrals: Non [facility] Provider, [Primary Care Provider] - [facility] at [facility] [Outside] Disposition: HOME/ ROUTINE Disposition Time: 20:29 Condition: STABLE Additional Instructions: follow up with detox facilities within 2 days call to make an appointment return to ER at any time. Instructions: Alcohol Abuse and Alcoholism (DC) Forms: [facility] (Dutch), General Discharge Instructions - Clinical Impression Clinical Impression: Alcohol abuse - Scribe Statement The provider has reviewed the documentation as recorded by the Scribe Dorian Reeves All medical record entries made by the Scribe were at my direction and personally dictated by me. I have reviewed the chart and agree that the record accurately reflects my personal performance of the history, physical exam, medical decision making, and the department course for this patient. I have also personally directed, reviewed, and agree with the discharge instructions and disposition.
[2017-09-26 22:28] VITALS: BP 159/95; PULSE 104; RESP 20; TEMP 98.4
== END 2017-09-26 22:20 | disposition home or self-care (01) ==
LOC: SUPCPDRO 20:59 → C.ER 20:59
DX: F10.10 Alcohol abuse, uncomplicated (principal); Y90.9 Presence of alcohol in blood, level not specified

== ENCOUNTER 2017-09-28 17:43 | Emergency (ER) | payer OTHER ==
[2017-09-28 17:48] VITALS: BMI 23.9
[2017-09-28 17:51] VITALS: BP 130/89; PULSE 116; RESP 18; TEMP 98; O2SAT 96
== END 2017-09-28 17:48 | disposition left against medical advice (07) ==
LOC: C.ER 17:43
DX: Z02.89 Encounter for other administrative examinations (principal)

== ENCOUNTER 2017-09-29 10:06 | Emergency (ER) | payer OTHER ==
[2017-09-29 10:09] VITALS: BMI 23.3
[2017-09-29 10:16] VITALS: BP 162/95; PULSE 94; RESP 20; TEMP 98.7; O2SAT 97
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
== END 2017-09-29 11:35 | disposition home or self-care (01) ==
LOC: C.ER 10:06
DX: F10.229 Alcohol dependence with intoxication, unspecified (principal)

== ENCOUNTER 2017-11-19 14:41 | Emergency (ER) | payer OTHER ==
[2017-11-19 14:41] VITALS: BMI 23.3
[2017-11-19 14:49] VITALS: O2SAT 99
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
[2017-11-19 15:45] VITALS: RESP 16
[2017-11-19 15:45] LABS: BASO # 0.2 K/uL (0.0-0.2); BASO % 1.2 % (0.0-2.0); EOS # 0.4 K/uL (0.0-0.7); EOS % 2.6 % (0.0-4.0); HEMOGLOBIN 14.4 g/dL (12.0-18.0); LYMPH # 2.4 K/uL (1.0-4.3); LYMPH % 14.7 % (20.0-40.0); MEAN CELL VOLUME 91.4 fL (80.0-94.0); MEAN CORPUSCULAR HEMOGLOBIN 30.6 pg (27.0-31.0); MEAN CORPUSCULAR HGB CONC 33.5 g/dL (33.0-37.0); MEAN PLATELET VOLUME 8.2 fL (7.2-11.7); MONO # 0.5 K/uL (0.0-0.8); MONO % 2.9 % (0.0-10.0); NEUT # 12.7 K/uL (1.8-7.0); NEUT % 78.6 % (50.0-75.0); RBC 4.71 Mil/uL (4.40-5.90); RED CELL DISTRIBUTION WIDTH 14.1 % (11.5-14.5); WHITE BLOOD COUNT 16.1 K/uL (4.8-10.8)
[2017-11-19 15:55] LABS: VENOUS BLOOD GAS BASE EXCESS 2.7 mmol/L (0.0-2.0); VENOUS BLOOD GAS PCO2 44 mmHg (40-60); VENOUS BLOOD GAS PO2 30 mm/Hg (30-55); VENOUS BLOOD PH 7.41 (7.32-7.43)
[2017-11-19 16:39] LABS: ALB/GLOB RATIO 1.3 (1.0-2.1); ALBUMIN 4.7 g/dL (3.5-5.0); ALT/SGPT 23 U/L (21-72); AST/SGOT 26 U/L (17-59); BLOOD UREA NITROGEN 14 mg/dL (9-20); GFR NON-AFRICAN AMERICAN > 60
[2017-11-19 17:06] VITALS: BP 136/82; PULSE 81; TEMP 98.2
== END 2017-11-19 17:05 | disposition home or self-care (01) ==
LOC: C.ER 14:41
DX: K42.9 Umbilical hernia without obstruction or gangrene (principal)

== ENCOUNTER 2018-02-25 16:28 | Emergency (ER) | payer OTHER ==
[2018-02-25 16:28] VITALS: BMI 24.3
== END 2018-02-25 16:37 | disposition left against medical advice (07) ==
LOC: C.ER 16:28
DX: Z02.89 Encounter for other administrative examinations (principal); R10.9 Unspecified abdominal pain

== ENCOUNTER 2018-02-25 16:40 | Emergency (ER) | payer OTHER ==
[2018-02-25 16:40] VITALS: BMI 24.3
[2018-02-25 16:47] VITALS: BP 141/98; PULSE 118; RESP 18; TEMP 97.8; O2SAT 98
--- NOTE | 2018-02-25 18:27 | C.PDOC ---
History Of Present Illness 52 y/o M presents for alcohol detox. Patient states he drank today and is drunk. He states he had abdominal pain before but notes that when he drinks the abdominal pain resolves. Otherwise denies any fever, chest pain, dyspnea, or other somatic complaints. Time Seen by Provider: 02/25/18 17:10 Chief Complaint (Nursing): Substance Abuse Past Medical History Vital Signs: Last Vital Signs Temp 97.8 F 02/25/18 16:43 Pulse 118 H 02/25/18 16:43 Resp 18 02/25/18 16:43 BP 141/98 H 02/25/18 16:43 Pulse Ox 98 02/25/18 16:43 - Medical History PMH: Asthma (DENIES), HTN (DENIES) Denies: HIV, Chronic Kidney Disease, Seizures, Sexually Transmitted Disease - [facility] Procedures DETOXIFICATION SERVICES FOR SUBSTANCE ABUSE TREATMENT (08/23/17) GROUP MAINTENANCE PORTER FOR SUBSTANCE ABUSE TREATMENT, PSYCHOEDUCATION (08/23/17) INDIV PSYCHOTHERAPY FOR SUBSTANCE ABUSE TREATMENT, SUPPORT (08/23/17) MEDICATION MANAGEMENT (08/23/17) PERIPHERAL NERVE SUTURE (11/03/97) PHARMACOTHERAPY FOR SUBSTANCE ABUSE, NICOTINE REPLACE (08/23/17) SKIN SUTURE NEC (11/03/97) SUTUR FLEX TEND HAND NEC (11/03/97) Family History: States: Unknown Family Hx - Social History Hx Tobacco Use: Yes Hx Alcohol Use: No Hx Substance Use: Yes - Immunization History Hx Tetanus Toxoid Vaccination: No Hx Influenza Vaccination: No Hx Pneumococcal Vaccination: No Review Of Systems Except As Marked, All Systems Reviewed And Found Negative. Constitutional: Negative for: Fever Cardiovascular: Negative for: Chest Pain Physical Exam - Physical Exam Additional Physical Exam Comments: Gen: NAD Head: NC/AT Eyes: PERRL ENT: MMM Neck: Supple Chest: No tenderness CV: Regular rate Lungs: CTA b/l Abd: Soft, NT. Umbilical hernia. Back: No CVA tenderness Extremities: No swelling or tenderness Skin: No rash Neuro: Alert, no focal deficit ED Course And Treatment O2 Sat by Pulse Oximetry: 98 Medical Decision Making Medical Decision Making: Patient attempted to leave ED to smoke cigarette, brought back by security. I informed patient that it is against hospital policy to allow patients to come and go while being evaluated and treated for detox. I offered patient nicotine patch. He refused and wished to leave the ED. He was with steady gait. Disposition - Disposition Disposition: ELOPEMENT - ER ONLY Disposition Time: 18:00 Condition: STABLE Forms: [facility] (Frisian) - Clinical Impression Clinical Impression: Alcohol abuse
== END 2018-02-25 18:00 | disposition left against medical advice (07) ==
LOC: C.ER 16:40
DX: F10.10 Alcohol abuse, uncomplicated (principal)

== ENCOUNTER 2018-02-26 04:40 | Emergency (ER) | payer OTHER ==
[2018-02-26 04:40] VITALS: BMI 24.3
[2018-02-26 04:57] VITALS: O2SAT 97
[2018-02-26] MEDS ORDERED: Sodium Chloride 0.9% 1,000 ML IV ONE (05:04)
[2018-02-26 05:29] LABS: BASO # 0.2 K/uL (0.0-0.2); BASO % 1.5 % (0.0-2.0); EOS # 0.4 K/uL (0.0-0.7); EOS % 3.5 % (0.0-4.0); HEMOGLOBIN 13.9 g/dL (12.0-18.0); LYMPH % 32.3 % (20.0-40.0); MEAN CELL VOLUME 87.7 fL (80.0-94.0); MEAN CORPUSCULAR HEMOGLOBIN 29.7 pg (27.0-31.0); MEAN CORPUSCULAR HGB CONC 33.9 g/dL (33.0-37.0); MEAN PLATELET VOLUME 7.1 fL (7.2-11.7); MONO % 7.8 % (0.0-10.0); NEUT # 6.9 K/uL (1.8-7.0); NEUT % 54.9 % (50.0-75.0); NRBC % 0.1 % (0.0-2.0); RBC 4.7 Mil/uL (4.40-5.90); RED CELL DISTRIBUTION WIDTH 13.8 % (11.5-14.5); WHITE BLOOD COUNT 12.5 K/uL (4.8-10.8)
[2018-02-26 05:39] LABS: ALB/GLOB RATIO 1.4 (1.0-2.1); ALBUMIN 4.4 g/dL (3.5-5.0); ALT/SGPT 23 U/L (21-72); AST/SGOT 51 U/L (17-59); BLOOD UREA NITROGEN 19 mg/dL (9-20); CALCIUM 8.7 mg/dl (8.6-10.4); GFR NON-AFRICAN AMERICAN > 60
[2018-02-26 05:41] LABS: PROTHROMBIN TIME 10.9 SECONDS (9.7-12.2)
--- NOTE | 2018-02-26 05:47 | C.PDOC ---
History Of Present Illness Patient presents to ED c/o SOB (at rest) for several hours associated with pleuritic, sharp, nonradiating chest pain. He denies fever, cough, palpitations, abdominal pain, nausea/vomiting/diarrhea, leg edema, calf pain, trauma/injuries. PMHx: hernia repair, cigarette smoking, alcohol abuse Time Seen by Provider: 02/26/18 04:53 Chief Complaint (Nursing): Shortness Of Breath History Per: Patient, Other (friend at bedside ) History/Exam Limitations: other (poor historian ) Onset/Duration Of Symptoms: Hrs Current Symptoms Are (Timing): Still Present Severity: Moderate Past Medical History Reviewed: Historical Data, Nursing Documentation, Vital Signs Vital Signs: Last Vital Signs Temp 98.8 F 02/26/18 04:53 Pulse 102 H 02/26/18 04:53 Resp 20 02/26/18 04:53 BP 132/82 02/26/18 04:53 Pulse Ox 97 02/26/18 04:53 - Medical History PMH: Asthma (DENIES), HTN (DENIES) - [facility] Procedures DETOXIFICATION SERVICES FOR SUBSTANCE ABUSE TREATMENT (08/23/17) GROUP DEPUTY FIRE MARSHAL FOR SUBSTANCE ABUSE TREATMENT, PSYCHOEDUCATION (08/23/17) INDIV PSYCHOTHERAPY FOR SUBSTANCE ABUSE TREATMENT, SUPPORT (08/23/17) MEDICATION MANAGEMENT (08/23/17) PERIPHERAL NERVE SUTURE (11/03/97) PHARMACOTHERAPY FOR SUBSTANCE ABUSE, NICOTINE REPLACE (08/23/17) SKIN SUTURE NEC (11/03/97) SUTUR FLEX TEND HAND NEC (11/03/97) Family History: States: No Known Family Hx - Social History Hx Tobacco Use: Yes Hx Alcohol Use: No Hx Substance Use: No - Immunization History Hx Tetanus Toxoid Vaccination: No Hx Influenza Vaccination: No Hx Pneumococcal Vaccination: No Review Of Systems Constitutional: Negative for: Fever, Chills Cardiovascular: Positive for: Chest Pain. Negative for: Palpitations Respiratory: Positive for: Shortness of Breath. Negative for: Cough, SOB with Excertion, Pleuritic Pain, Sputum, Wheezing Gastrointestinal: Negative for: Nausea, Vomiting, Abdominal Pain, Diarrhea Skin: Negative for: Rash Physical Exam - Physical Exam Appears: Well, Non-toxic, Other (anxious appearing, speaking in full sentences) Skin: Warm, Dry, Other (multiple tattoos ) Head: Normacephalic Eye(s): bilateral: Normal Inspection Oral Mucosa: Moist Cardiovascular: Rhythm Regular Respiratory: Normal Breath Sounds, No Accessory Muscle Use, No Rales, No Rhonchi, No Wheezing Gastrointestinal/Abdominal: Normal Exam, Bowel Sounds, Soft, No Tenderness Extremity: Normal ROM, No Pedal Edema, No Calf Tenderness Pulses: Left Dorsalis Pedis: Normal, Right Dorsalis Pedis: Normal Neurological/Psych: Oriented x3, Other (no tremors) ED Course And Treatment - Laboratory Results Result Diagrams: 02/26/18 05:24 02/26/18 05:24 ECG: Interpreted By Me, Viewed By Me (NSR 87 bpm, normal axis, no acute ST/T wave changes) ECG Interpretation: Normal O2 Sat by Pulse Oximetry: 97 (RA) Pulse Ox Interpretation: Normal - Radiology CXR: Interpreted by Me, Viewed By Me CXR Interpretation: Yes: No Acute Disease. No: Infiltrates Progress Note: Blood work, EKG, CXR ordered and reviewed. Patient given IV NS bolus. D-dimer elevated - CTA chest ordered. 5:40am- Patient now mildly tremulous, states last drink was "two days ago". PO Librium given. 6:25am - Patient up in CT scan now telling tech he is allergic to IV contrast, "stopped breathing" previously. CT scan cancelled and VQ scan ordered. Disposition - Disposition Disposition Time: 07:00 Condition: STABLE Forms: [facility] (Maltese) - Clinical Impression Clinical Impression: Dyspnea, Chest pain, pleuritic Physician Patient Turnover Patient Signed Over To: Wing Arroyo Handoff Comments: pending VQ scan, reassessment
[2018-02-26 05:51] LABS: B-TYPE NATRIURETIC PEPTIDE 76.3 pg/mL (0-900)
[2018-02-26] MEDS ORDERED: Iodixanol 320 MG/ML 100 ML BOTTLE IV ONE (05:59)
[2018-02-26 07:11] VITALS: BP 124/72; PULSE 82; RESP 17; TEMP 98.4
[2018-02-26 08:18] LABS: SQUAMOUS EPITHIAL < 1 /hpf (0-5); URINE BILIRUBIN NEGATIVE (NEGATIVE); URINE BLOOD 2+ (NEGATIVE); URINE CLARITY Clear (Clear); URINE COLOR Yellow (YELLOW); URINE GLUCOSE (UA) NORMAL (Normal); URINE LEUKOCYTE ESTERASE NEG Leu/uL (Negative); URINE PROTEIN NEGATIVE (NEGATIVE); URINE UROBILINOGEN NORMAL mg/dL (0.2-1.0)
[2018-02-26 08:32] LABS: BARBITURATES, UR NEGATIVE (NEGATIVE); BENZODIAZEPINES, UR NEGATIVE (NEGATIVE); OPIATES, UR NEGATIVE (NEGATIVE); PHENCYCLIDINE, UR NEGATIVE (NEGATIVE)
--- NOTE | 2018-02-26 11:22 | RAD ---
HISTORY: SOB COMPARISON: Chest x-ray performed 11/29/17 TECHNIQUE: Chest, one view. FINDINGS: LUNGS: Biapical pleural thickening. Small hazy opacity within the medial right upper lobe. Small rounded opacity favored to represent artifact rather than cavitation. Please note that chest x-ray has limited sensitivity for the detection of pulmonary masses. PLEURA: No significant pleural effusion identified. No definite pneumothorax . CARDIOVASCULAR: Heart size appears within normal limits. No significant atherosclerotic calcification present. OSSEOUS STRUCTURES: No acute osseous abnormality identified. VISUALIZED UPPER ABDOMEN: Unremarkable. OTHER FINDINGS: None. IMPRESSION: Biapical pleural thickening. Mild hazy opacity within the medial right upper lobe. Small rounded opacity favored to represent artifact rather than cavitation however this cannot be definitively assessed on a single AP view of the chest. Recommend CT of the chest for further evaluation. Study marked for PA review.
--- NOTE | 2018-03-01 10:24 | CARD ---
APPROVED REPORT Date of service: 02/26/2018 EKG Measurement Heart [id number] <Conclusion> Normal sinus rhythm Normal ECG
== END 2018-02-26 08:16 | disposition left against medical advice (07) ==
LOC: C.ER 04:40
DX: R07.81 Pleurodynia (principal); R06.00 Dyspnea, unspecified
CPT/HCPCS: 71045; 80053; 80324; 80345; 80346; 80349; 80353; 80358; 80361; 81001; 82550; 82553; 83880; 83992; 84484; 85025; 85378; 85610; 85730; 93005; 96360; 99285; J7030

== ENCOUNTER 2018-02-28 12:27 | Emergency (ER) | payer OTHER ==
[2018-02-28 12:28] VITALS: BMI 24.3
[2018-02-28 12:58] VITALS: TEMP 97.6; O2SAT 98
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
[2018-02-28 15:58] VITALS: BP 130/82; PULSE 88; RESP 20
--- NOTE | 2018-03-01 23:22 | CARD ---
APPROVED REPORT Date of service: 02/28/2018 EKG Measurement Heart [id number] <Conclusion> Normal sinus rhythm with sinus arrhythmia Normal ECG
== END 2018-02-28 15:57 ==
LOC: C.ER 12:27
DX: R07.89 Other chest pain (principal); F10.129 Alcohol abuse with intoxication, unspecified; Y90.9 Presence of alcohol in blood, level not specified